=== PATIENT | male | born 1975 | race Caucasian/White ===

== ENCOUNTER 2020-04-06 10:12 | Outpatient (CLI) | payer OTHER, SELFPAY ==
--- NOTE | ~2020-04-06 | XR_ITS ---
XR lumbar spine 2-3V DATE: 04/06/2020 10:30 INDICATION: Low back pain. No recent injury. TECHNIQUE: AP, lateral, coned lateral lumbosacral views COMPARISON: None FINDINGS: No fracture or bone destruction or spondylolisthesis. The lumbar interspaces are well pres erved. The lumbar pedicles are intact. The sacroiliac joints are normal. IMPRESSION: No significant abnormality Reviewed, dictated and finalized at location B. IMPRESSION: No significant abnormality
== END 2020-04-06 10:13 | disposition home or self-care (01) ==
LOC: ANHIMG 10:21
PROVIDERS: PCP Internal Medicine; Visit Provider Internal Medicine
DX: M54.5 Low back pain (principal)
CPT/HCPCS: 72100

== ENCOUNTER 2024-03-09 12:39 | Emergency (ER) | payer OTHER, SELFPAY ==
--- NOTE | ~2024-03-09 | CT_ITS ---
EXAMINATION: CT abdomen pelvis w con DATE: 03/09/2024 14:50 INDICATION: Abdominal pain TECHNIQUE: Computed tomography (CT) of the abdomen and pelvis was performed with 100 mL Omnipaque-350 intravenous contrast. Automated exposure control and iterative reconstruction technique were employe d. The dose-length product was 233.62 mGy-cm. COMPARISON: None FINDINGS: Minimal discoid atelectasis in the anterobasilar segment of the left lower lobe. Heart size is normal . No pericardial or pleural effusion. Focal hepatic steatosis along the ligamentum teres. Gallbladder , spleen, pancreas, bilateral adrenal glands and kidneys are normal. Bowels including the appendix ar e normal. Bladder is normal. Prostatomegaly measuring 4.4 x 3.4 cm. No free intraperitoneal gas or fl uid. No pathologically enlarged abdominal or pelvic lymphadenopathy. There is decreased bilateral destinee ves appear femoral head neck offset with mild cystic change on the left which is decreasing in the se tting of cam-type femoral acetabular impingement. Mild osteoarthritis pubis with hypertrophic entheso phytes. IMPRESSION: 1. No acute intra-abdominal/pelvic process. 2. Prostatomegaly. Reviewed, dictated and finalized at location B.
[2024-03-09 12:53] VITALS: BP 137/91; PULSE 102; RESP 18; TEMP 36.5; O2SAT 97
[2024-03-09 13:38] LABS: Basophils Absolute Auto 0.1 K/mm3 (0.0-0.1); Basophils Percent Auto 0.5 % (0.2-1.2); Hematocrit 49.7 % (42.0-52.0); Hemoglobin 16.7 g/dL (14.0-18.0); Immature Granulocyte Absolute 0.03 K/mm3 (0.00-0.031); Immature Granulocyte Percent A 0.3 % (0-0.5); Lymphocytes Absolute Auto 1.47 K/mm3 (0.9-3.2); Lymphocytes Percent Auto 15.3 % (18.3-44.2); Mean Corpuscular HGB Conc 33.6 g/dl (32-36); Mean Corpuscular Hemoglobin 32.5 pg (26-34); Mean Corpuscular Volume 96.7 fl (80-100); Monocytes Absolute Auto 0.7 K/mm3 (0.1-0.6); Neutrophils Absolute Auto 7.4 K/mm3 (1.3-6.7); Neutrophils Percent Auto 76.9 % (45.5-73.1); Platelet Count Result 263 k/mm3 (150-375); Red Blood Count 5.14 M/mm3 (4.6-6.20); Red Cell Distribution Width 12.5 % (11.5-14.5); White Blood Count 9.6 K/mm3 (4.5-10.0)
[2024-03-09 14:00] LABS: Alanine Aminotransferase 29 U/L (6-50); Albumin Level 5.2 g/dL (3.5-5.1); Alkaline Phosphatase 71 U/L (38-126); Anion Gap 7 mmol/L (4-12); Aspartate Amino Transferase 29 U/L (17-59); Bilirubin,Total 0.9 mg/dL (0.2-1.3); Blood Urea Nitrogen 13 mg/dL (9-20); Calcium 10.1 mg/dL (8.4-10.2); Carbon Dioxide 32 mmol/L (22-30); Chloride 101 mmol/L (98-107); Estimated CRCL calculation 76 ml/min; Estimated Glomerular Filt Rate > 60; Glucose 114 mg/dL (65-110); Lipase 70 U/L (23-300); Potassium 4.5 mmol/L (3.4-5.0); Sodium 140 mmol/L (137-145)
[2024-03-09 14:28] LABS: Appearance Urine Clear (Clear); Bacteria Urine None Seen /hpf; Bilirubin Urine Negative (Negative); Blood Urine 1+ (Negative); Color Urine Yellow (Yellow); Glucose Urine UA Negative (Negative); Ketones Urine Trace mg/dL (Negative); Leukocyte Esterase Ur Negative LEU/UL (Negative); Need Manual Microscopic Reviewed; Nitrate Urine Negative (Negative); Non Pathogenic Casts 0-2; Protein Urine Negative (Negative); Squamous Epithelial Cell Urine None Seen /hpf (Few); Urobilinogen Urine 0.2 mg/dL (<2.0); WBC Urine 0-5 /hpf (0-3)
[2024-03-09 14:30] LABS: Add Urine Microscopic? YES; Specific Grav Ur 1.003 (1.001-1.035)
--- NOTE | 2024-03-09 14:46 | PC.NURSE ---
Pt to CT scan via stretcher at this time.
[2024-03-09] MEDS: ONDANSETRON INJ 4 MG/2 ML VIAL IV PUSH (14:55)
[2024-03-09] MEDS: SODIUM CHLORIDE 0.9% IV 1,000 ML 999 ML IV CONT (14:55)
--- NOTE | 2024-03-09 15:05 | ED.ABDPAIN ---
HPI - Abdominal Pain General Chief Complaint: Abdominal Pain Stated Complaint: vomiting, diarrhea Time Seen by Provider: 03/09/24 13:44 History of Present Illness HPI narrative: 48-year-old male present to the emergency department for evaluation for abdominal pain with associated nausea and vomiting. Patient does have a history of ulcerative colitis but does not have a GI physician. Patient states his symptoms started last night and have persisted. Patient states he has been having diarrhea as well and did notice some blood on the toilet paper after he wiped. Patient did not notice any blood in the bowl. Related Data Allergies Allergy/AdvReac Type Severity Reaction Status Date / Time No Known Allergies Allergy Verified 03/09/24 14:00 Review of Systems Review of Systems: All systems reviewed & are unremarkable except as noted in HPI and below Exam Narrative: APPEARANCE: Well appearing, no pain, no distress, well-nourished. HEAD: normocephalic, atraumatic. EYES: PERRLA/EOMI, conjunctivae clear. NOSE: Normal no drainage EARS:TMS clear with good light reflex. THROAT: Pharynx clear, no exudate. NECK: Supple. No adenopathy, no masses. RESPIRATORY: Airway patent, respirations nonlabored. Clear to auscultation bilaterally, no rales, rhonchi, wheezing. CARDIOVASCULAR: Regular rate and rhythm without murmurs rubs or gallops. ABDOMINAL: Diffuse abdominal tenderness to palpation MUSCULOSKELETAL: Moves all extremities. Strength/ROM intact, No edema, No calf tenderness. NEURO: Alert. Cranial nerves II through XII intact. Grossly intact SKIN: Warm, dry. Normal Color Course Course Emergency Course: Patient does feel improved with treatment. Vital Signs Vital signs: Vital Signs Temperature 97.7 F 03/09/24 12:53 Pulse Rate 102 H 03/09/24 12:53 Respiratory Rate 18 03/09/24 12:53 Blood Pressure 137/91 H 03/09/24 12:53 Pulse Oximetry 97 03/09/24 12:53 Oxygen Delivery Room Air 03/09/24 12:53 Temperature 97.7 F 03/09/24 12:53 Pulse Rate 80 03/09/24 16:46 Respiratory Rate 17 03/09/24 16:46 Blood Pressure 126/78 03/09/24 16:46 Pulse Oximetry 97 03/09/24 16:46 Oxygen Delivery Room Air 03/09/24 12:53 MDM - Abdominal Pain MDM Narrative Medical decision making narrative: 40-year-old male presents emergency department for evaluation for nausea vomiting and abdominal pain. Patient is afebrile with no leukocytosis and a stable hemoglobin of 16.7. Patient has no acute abnormalities on his CMP lipase is negative. Patient does have some blood on his UA but no underlying evidence of infection. CT scan showed no acute abnormality. Patient was treated with IV fluids and Zofran and did feel is nausea was improved. Patient was also treated with IV medications for pain control. On re-evaluation patient states he does feel significantly improved. Differential Diagnosis Differential diagnosis: Likely abdominal pain, acute appendicitis, calculus of kidney, constipation, diverticulitis, gastroenteritis, pancreatitis and small bowel obstruction Lab Data Attestation: I reviewed the patient's lab results. 03/09/24 13:30 03/09/24 13:30 Labs: Lab Results 03/09/24 03/09/24 Range/Units 13:30 14:04 WBC 9.6 (4.5-10.0) K/mm3 RBC 5.14 (4.6-6.20) M/mm3 Hgb 16.7 (14.0-18.0) g/dL Hct 49.7 (42.0-52.0) % MCV 96.7 (80-100) fl MCH 32.5 (26-34) pg MCHC 33.6 (32-36) g/dl RDW 12.5 (11.5-14.5) % Plt Count 263 (150-375) k/mm3 MPV 9.0 (7.4-10.4) fl Immature Gran % (Auto) 0.3 (0-0.5) % Neut % (Auto) 76.9 H (45.5-73.1) % Lymph % (Auto) 15.3 L (18.3-44.2) % Baker % (Auto) 7.0 (2.6-8.5) % Eos % (Auto) 0.0 (0-4.4) % Baso % (Auto) 0.5 (0.2-1.2) % Lymph # (Auto) 1.47 (0.9-3.2) K/mm3 Baker # (Auto) 0.7 H (0.1-0.6) K/mm3 Eos # (Auto) 0.0 (0-0.3) K/mm3 Baso # (Auto) 0.1 (0.0-0.1) K/mm3 Abs Immat Gran (auto) 0.03
[2024-03-09 15:14] VITALS: BP 122/73; PULSE 89; RESP 15; O2SAT 96
[2024-03-09] MEDS: HYDROmorphone HCL INJ (*CRX) 1 MG/ML SYR IV PUSH (15:14)
[2024-03-09 16:46] VITALS: BP 126/78; PULSE 80; RESP 17; O2SAT 97
== END 2024-03-09 16:56 | disposition home or self-care (01) ==
PROVIDERS: Emergency Provider Emergency Medicine; PCP Internal Medicine
DX: R10.9 Unspecified abdominal pain (principal); R11.2 Nausea with vomiting, unspecified
CPT/HCPCS: 36415; 74177; 80053; 81001; 83690; 85025; 96361; 96374; 96375; 99284; J1170; J2405; J7030; Q9967

== ENCOUNTER 2024-05-04 12:14 | Outpatient (CLI) | payer OTHER, SELFPAY ==
[2024-05-04 13:15] LABS: CRP < 0.5 mg/dL (<1.0)
[2024-05-04 13:21] LABS: Erythrocyte Sedimentation Rate 10 mm/hr (0-20)
[2024-05-04 13:50] LABS: Hepatitis B Core IgM Result Negative (Negative)
[2024-05-04 14:03] LABS: Hepatitis B Surface Anti Res Negative
[2024-05-06 13:58] LABS: Hepatitis B Core Ab Total NON-REACTIVE (NON-REACTIVE)
[2024-05-07 11:03] LABS: NIL 0.02 IU/mL; Quantiferon TB Plus, 1T NEGATIVE (NEGATIVE); TB1-NIL 0.01 IU/mL; TB2-NIL 0.01 IU/mL
== END 2024-05-04 12:15 | disposition home or self-care (01) ==
LOC: ANHLAB 12:16
PROVIDERS: PCP Internal Medicine; Visit Provider Nurse Practitioner Family
DX: K51.90 Ulcerative colitis, unspecified, without complications (principal)
CPT/HCPCS: 36415; 85652; 86140; 86480; 86704; 86705; 86706

== ENCOUNTER 2024-05-05 10:57 | Outpatient (CLI) | payer OTHER, SELFPAY ==
[2024-05-15 21:49] LABS: Calprotectin, Stool 75 mcg/g
== END 2024-05-05 10:58 | disposition home or self-care (01) ==
LOC: ANHLAB 10:59
PROVIDERS: PCP Internal Medicine; Visit Provider Nurse Practitioner Family
DX: K51.90 Ulcerative colitis, unspecified, without complications (principal)
CPT/HCPCS: 83993

== ENCOUNTER 2024-08-17 07:16 | Outpatient (CLI) | payer OTHER, SELFPAY ==
--- NOTE | ~2024-08-17 | NM_ITS ---
EXAM: NM gastric emptying study DATE: 08/17/2024 12:13 INDICATION: Nausea with vomiting, unspecified. TECHNIQUE: A gastric emptying study was performed using the methodology of Linnea MARTIN, et al. J Nucl Med 2007; 48:568-572. The patient was given a meal consisting of 2 scrambled eggs labeled with 1.1 m Ci Tc-99m sulfur colloid, 2 slices of toast, two packages of jam, and approximately 120 mL of water. Simultaneous anterior and posterior 1-min images of the abdomen were obtained with the patient supine at multiple time points over a total period of 4 hours. The geometric mean of anterior and posterior views was determined, and the percentage retention was calculated for each time point. COMPARISON: CT abdomen and pelvis 03/09/2024 FINDINGS: Gastric retention of the radiotracer-labeled meal was 64%, 27%, and 4% at the 1-hour, 2-ho ur, and 4-hour time points, respectively. With this technique, apparent rapid gastric emptying is sug gested by <30% gastric retention at 1 hour. Delayed gastric emptying is defined by gastric retention of >90% at 1 hour, >60% retention at 2 hours, or >10% retention at 4 hours. IMPRESSION: 1. Normal gastric emptying. Reviewed, dictated and finalized at location A. [facility] [employer] IMPRESSION: 1. Normal gastric emptying.
== END 2024-08-17 07:17 | disposition home or self-care (01) ==
PROVIDERS: PCP Internal Medicine; Visit Provider Nurse Practitioner Family
DX: R11.2 Nausea with vomiting, unspecified (principal)
CPT/HCPCS: 78264; A9541

== ENCOUNTER 2024-10-07 00:51 | Day surgery (SDC) | payer OTHER, SELFPAY ==
[2024-09-29 15:17] VITALS: BMI 21.2
--- NOTE | 2024-10-06 15:44 | P.PNAN_ITS ---
Anes - Initial Pre Proc Eval Procedure: Operation Date: 10/07/24 14:30 Proposed Procedures p Esophagogastroduodenoscopy - Daron Jacome MD Date/Time: 10/06/24 15:44 Surgeon: Daron Jacome MD Pre Op Diagnosis: nausea w/ vomiting Patient Data Age: 49 Gender: M Height: 1.85 m Weight: 73 kg Allergies Allergy/AdvReac Type Severity Reaction Status Date / Time No Known Allergies Allergy Verified 09/29/24 15:14 Home Medications ?Medication ?Instructions ?Recorded ?Confirmed ?Type ondansetron 4 mg disintegrating 4 mg PO Q8H PRN nausea and 03/09/24 09/29/24 Rx tablet vomiting #20 tabs omeprazole 40 mg capsule,delayed 40 mg PO DAILY 1 month #30 caps 07/08/24 09/29/24 Rx release venlafaxine 75 mg capsule,extended 75 mg PO DAILY 07/08/24 09/29/24 History release 24 hr mesalamine 1.2 gram tablet,delayed 2.4 g PO DAILY 09/29/24 09/29/24 History release Patient hx anesthesia problems: none Family hx anesthesia problems: none Results Review: All pre-operative results and documents have been reviewed as part of the pre- operative evaluation. [facility] Past Medical History Medical History (Updated 07/08/24 @ 15:12 by FIDE TurnerC) Gastritis and duodenitis Rectal nodule Anxiety Erectile dysfunction Tobacco use Venous stasis Varicose veins of both legs with edema Kidney stone Depression Ulcerative colitis Social History Social History Smoking packs per day: 1 Smoking cigarettes per day: 20.0 Years smoked: 5 Smoking pack-years: 5.00 Smoking status: Current every day smoker Tobacco type: cigarettes Alcohol intake: never Substance use: current Substance use type: marijuana Other substance usage details: Marijuana daily Living arrangements: with family Spiritual care concerns: No Anes - Eval Final PreProcedure Day of Procedure 10/06/24 15:44 Patient weight: normal Heart: regular rate and rhythm Lungs: clear to auscultation and normal air movement Airway: Mallampati scale class II Neurological: alert and oriented Last oral intake: >/= 8 hours ASA classification: III Emergent: no Anesthetic plan: proceed Anesthesia type and monitoring: general GIVS and standard monitoring Results Review: All pre-operative results and documents have been reviewed as part of the pre- operative evaluation. Informed Consent: The patient's anesthetic plan and its attendant risks and benefits were discussed with the patient/family/POA. Questions were solicited and answers provided to the satisfaction of the patient/family/POA.
[2024-10-07 13:04] VITALS: BP 108/65; PULSE 76; RESP 18; TEMP 36.4; O2SAT 96; BMI 20.4
--- NOTE | 2024-10-07 13:05 | PM.HPGS ---
History of Present Illness History of Present Illness Consent: Risks, benefits, and alternatives have been discussed and questions answered. Patient agrees to proceed with procedure. Chief complaint: nausea w/ vomiting Narrative: Mejia Duarte is a 49 year old male here for EGD, h/o GERD and nausea, using ppi, also ulcerative proctitis on mesalamine Review of Systems Review of Systems: All systems reviewed & are unremarkable except as noted in HPI and below PMFSH Past Medical History Medical History (Updated 10/07/24 @ 13:10 by Daron Jacome MD) GERD (gastroesophageal reflux disease) Nausea Gastritis and duodenitis Rectal nodule Anxiety Erectile dysfunction Tobacco use Venous stasis Varicose veins of both legs with edema Kidney stone Depression Ulcerative colitis Social History Social History Smoking packs per day: 1 Smoking cigarettes per day: 20.0 Years smoked: 5 Smoking pack-years: 5.00 Smoking status: Current every day smoker Tobacco type: cigarettes Alcohol intake: never Substance use: current Substance use type: marijuana Other substance usage details: Marijuana daily Living arrangements: with family Spiritual care concerns: No Meds Home Medications and Allergies Home Medications ?Medication ?Instructions ?Recorded ?Confirmed ?Type ondansetron 4 mg disintegrating 4 mg PO Q8H PRN nausea and 03/09/24 09/29/24 Rx tablet vomiting #20 tabs omeprazole 40 mg capsule,delayed 40 mg PO DAILY 1 month #30 caps 07/08/24 10/07/24 Rx release venlafaxine 75 mg capsule,extended 75 mg PO DAILY 07/08/24 10/07/24 History release 24 hr mesalamine 1.2 gram tablet,delayed 2.4 g PO DAILY 09/29/24 10/07/24 History release Allergies Allergy/AdvReac Type Severity Reaction Status Date / Time No Known Allergies Allergy Verified 10/07/24 13:02 Exam Const: General: comfortable and no acute distress HENMT: Face/Nose/Sinus: Normal nares present Eyes: General: appearance normal, both eyes and all related structures Neck: Neck: no JVD Resp: Auscultation: clear to auscultation bilaterally Cardio: Rate: regular rate Rhythm: regular rhythm GI: Inspection: non-distended GI Palp: Yes Soft to palpation Skin: General skin exam: normal color Neuro: General: gait normal Speech: normal speech Extrem: General: normal to inspection Psych: Mental Status: mental status grossly normal Assessment and Plan Assessment and plan (1) Nausea: Code(s): R11.0 - Nausea Status: Acute Assessment and Plan: egd with bx (2) GERD (gastroesophageal reflux disease): Code(s): K21.9 - Gastro-esophageal reflux disease without esophagitis Status: Acute
[2024-10-07] MEDS: LACTATED RINGERS 1,000 ML 150 ML IV CONT (13:08)
[2024-10-07 13:20] VITALS: BP 79/46; PULSE 77; RESP 21; O2SAT 99
[2024-10-07 13:30] VITALS: BP 83/50; PULSE 65; RESP 19; O2SAT 100
[2024-10-07 13:40] VITALS: BP 97/61; PULSE 73; RESP 24; O2SAT 97
--- OUTSIDE RECORDS SUMMARY | 2024-10-08 03:44 | XMS_ITS | Data Portability ---
Author Organization [facility] [employer], Main Office Address [address] [place] [address] Assessment Encounter Date Assessment Date Assessment LastModified by Organization Details LastModified Time 02/25/2023 02/25/2023 Varicose veins of BLEs. Hx of ablation of L GSV approx. 3-5 years ago. Patient has tried compression stockings without relief. He has significant cramping and soreness of BLEs, interferes with work. Will order venous duplex BLEs and f/u after results are obtained. [email or web address] Not available 02/25/2023 13:17:10 Plan of Treatment Reminders Order Date Submit Date Provider Last Modified By Organization Details Last Modified Time Details Appointments None recorded. Lab CBC w/ auto diff [address] [facility] n37 [facility] (Lab), [address] [place], [address], 3 08:36:38 CBC w/ auto diff 2022 023 [email or web address] [facility], [address], [place], [address], 3 08:39:57 CMP, serum or plasma 2022 023 [email or web address] [facility], 2022 [address], [place], [address], 3 08:39:57 CBC w/ auto diff 2022 023 STAN [facility], 20[address], [place], [address], 3 19:15:51 Referral vascular surgeon referral 2022 023 [email or web address] [facility], [address], [place], [address], 3 08:09:45 Procedures None recorded. Surgeries None recorded. Imaging US, duplex, venous, lower extremity 2022 023 [facility], [address] [facility], [place], [address], 3 09:05:12 Medication Orders venlafaxine ER 37.5 mg capsule,ext ended release 24 hr [email or web address]/Pharmacy #[id number], [address], [place], [address], 4 16:24:44 venlafaxine ER 75 mg capsule,ext ended release 24 hr 2022 [email or web address]/Pharmacy #[id number], [address], [place], [address], 3 17:38:05 buspirone 10 mg tablet 2022 [email or web address]/Pharmacy #[id number], [address], [place], [address], 3 17:37:25 ondansetron 4 mg disintegrat ing tablet 2023 024 [facility]/Pharmacy #[id number], [address], [place], [address], 4 16:59:47 mirtazapine 15 mg tablet [email or web address]/Pharmacy #[id number], [address], [place], [address], 4 07:52:05 Patient TargetsNo targets recorded. Patient InstructionsNo instructions recorded. Reason for Referral Vascular Surgeon Referral fo r Varicose veins of lower extremity Referring Physician: Eitan Ramirez, Internal Medicine, Encounter Date: 07/24/2023 Results Created Date Observation Date Name Description Value Unit Range Abnormal Flag Note LastModifiedBy Organization Detail LastModifiedTime 07/24/2007/24/2023 CBC/C OMPLE TE BLD COUNT W/DIF F white blood cells 5.8 x10'3 /uL 4.2-10 .8 Not Available [facility] (Lab) [address] [place], [address], 07/24/2023 19:15:51 07/24/2007/24/2023 CBC/C OMPLE TE BLD COUNT W/DIF F red blood cells 4.62 x10'6 /uL 4.10-5 .80 Not Available [facility] (Lab) [address] [place], [address], 07/24/2023 19:15:51 07/24/20 23 07/24/2023 CBC/C OMPLE TE BLD COUNT W/DIF F hemoglobin 15.3 g/dL 13.2-1 7.0 Not Available [facility] (Lab) [address] [place], [address], 07/24/2023 19:15:51 07/24/2007/24/2023 CBC/C OMPLE TE BLD COUNT W/DIF F hematocrit 46.7 % 39.3-5 0.0 Not Available [facility] (Lab) [address] [place], [address], 07/24/2023 19:15:51 07/24/2007/24/2023 CBC/C OMPLE TE BLD COUNT W/DIF F mean red cell volume 101.1 fL 80.0-9 7.0 high Not Available [facility] (Lab) [address] [place], [address], 07/24/2023 19:15:51 07/24/20 23 07/24/2023 CBC/C OMPLE TE BLD COUNT W/DIF F mean red cell hemoglobin 33.1 pg 27.0-3 3.0 high Not Available [facility] (Lab) [address] [place], [address], 07/24/2023 19:15:51 07/24/20 23 07/24/2023 CBC/C OMPLE TE BLD COUNT W/DIF F mean RBC HGB concentratio n 32.8 g/dL 31.0-3 6.0 Not Available [facility] (Lab) [address] [place], [address], 07/24/2023 19:15:51 07/24/2007/24/2023 CBC/C OMPLE TE BLD COUNT W/DIF F red cell distribution width 12.1 % 11.8-1 5.5 Not Available [facility] (Lab) [address] [place], [address], 07/24/2023 19:15:51 07/24/20 23 07/24/2023 CBC/C OMPLE TE BLD COUNT W/DIF F platelets 256 x10'3 /uL 150-40 0 Not Available [facility] (Lab) [address] [place], [address], 07/24/2023 19:15:51 07/24/2007/24/2023 CBC/C OMPLE TE BLD COUNT W/DIF F mean platelet volume 10.5 fL 9.0-12 .4 Not Available [facility] (Lab) [address] [facility] [place], [address], 07/24/2023 19:15:51 07/24/20 23 07/24/2023 CBC/C OMPLE TE BLD COUNT W/DIF F neutrophils 62.4 % 39.0-7 2.0 Not Available [facility] (Lab) [address] [place], [address], 07/24/2023 19:15:51 07/24/20 23 07/24/2023 CBC/C OMPLE TE BLD COUNT W/DIF F lymphocytes 28.6 % 16.0-4 7.0 Not Available [facility] (Lab) [address] [place], [address], 07/24/2023 19:15:51 07/24/20 23 07/24/2023 CBC/C OMPLE TE BLD COUNT W/DIF F monocytes 7.2 % 5.0-12 .0 Not Available [facility] (Lab) [address] [place], [address], 07/24/2023 19:15:51 07/24/20 23 07/24/2023 CBC/C OMPLE TE BLD COUNT W/DIF F eosinophils 1.2 % 1.0-7. 0 Not Available [facility] (Lab) [address] [place], [address], 07/24/2023 19:15:51 07/24/20 23 07/24/2023 CBC/C OMPLE TE BLD COUNT W/DIF F basophils 0.3 % 0.0-2. 0 Not Available [facility] (Lab) [address] [place], [address], 07/24/2023 19:15:51 07/24/20 23 07/24/2023 CBC/C OMPLE TE BLD COUNT W/DIF F immature granulocytes 0.3 % 0.00-0 .50 Not Available [facility] (Lab) [address] [place], [address], 07/24/2023 19:15:51 07/24/20 23 07/24/2023 CBC/C OMPLE TE BLD COUNT W/DIF F neutrophils, absolute count 3.61 x10'3 /uL 1.5-8. 0 Not Available [facility] (Lab) [address] [place], [address], 07/24/2023 19:15:51 07/24/20 23 07/24/2023 CBC/C OMPLE TE BLD COUNT W/DIF F lymphocytes, absolute count 1.66 x10'3 /uL 1.07-3 .43 Not Available [facility] (Lab) [address] [place], [address], 07/24/2023 19:15:51 07/24/20 23 07/24/2023 CBC/C OMPLE TE BLD COUNT W/DIF F monocytes, absolute count 0.42 x10'3 /uL 0.29-0 .99 Not Available [facility] (Lab) [address] [place], [address], 07/24/2023 19:15:51 07/24/20 23 07/24/2023 CBC/C OMPLE TE BLD COUNT W/DIF F eosinophils, absolute count 0.07 x10'3 /uL 0.02-0 .53 Not Available [facility] (Lab) [address] [place], [address], 07/24/2023 19:15:51 07/24/2007/24/2023 CBC/C OMPLE TE BLD COUNT W/DIF F basophils, absolute count 0.02 x10'3 /uL 0.01-0 .08 Not Available [facility] (Lab) [address] [place], [address], 07/24/2023 19:15:51 07/24/20 23 07/24/2023 CBC/C OMPLE TE BLD COUNT W/DIF F immature granulocytes ,absolute 0.02 x10'3 /uL 0.00-0 .05 Not Available [facility] (Lab) [address] [place], [address], 07/24/2023 19:15:51 07/24/20 23 07/24/2023 CBC/C OMPLE TE BLD COUNT W/DIF F nucleated red blood cells 0.0 % -0 Not Available [facility] (Lab) [address], [place], [address], 07/24/2023 19:15:51 07/24/20 23 07/24/2023 CBC/C OMPLE TE BLD COUNT W/DIF F NRBC# 0.00 x10'3 /uL Not Available [facility] (Lab) [address], [place], [address], 07/24/2023 19:15:51 02/28/20 23 US, duple x, venou s, lower extre mity No observ ation record ed. [email or web address] Not Available 2022 10:38:30 Result Notes None recorded. Problems Name Problem SNOMED Code Status Onset Date Resolution Date Notes Provider Name and Address Organization Details Recorded Time Rectal hemorrhage 31935807 Completed Not Available [facility] 3 01:08:23 Venous varices 266230859 Completed Not Available [facility] 3 01:08:23 Venous varices 988043745 Active Not Available [facility] 3 13:42:16 Liver function tests outside reference range 818915511 Active 2021 Not Available [facility] 3 13:42:16 Liver function tests outside reference range 829779054 Completed 201803/12/2022 Not Available [facility] 3 01:08:24 Serum creatinine above reference range 630094748 Active 2019 Not Available [facility] 3 13:42:16 Scapulalgi a 84281867 Completed Not Available [facility] 3 01:08:24 Abdominal pain 72261111 Completed Not Available [facility] 3 01:08:24 Low back pain 924170235 Active Not Available [facility] 3 13:42:17 Depressive disorder 22163656 Active 2021 Not Available [facility] 3 13:42:17 Anxiety 56439835 Active Not Available [facility] 3 13:42:17 Ulcerative colitis 75005169 Active Not Available [facility] 3 13:42:17 Otitis media 96135167 Completed Not Available [facility] 3 01:08:25 Venous stasis 31372884 Active Not Available [facility] 3 13:42:17 Smoker 16979055 Active Not Available [facility] 3 13:42:17 Kidney stone 35439336 Active 2019 Not Available [facility] 3 13:42:17 Leukocytos is 458795745 Active 2022 Not Available [facility] 3 13:42:16 Fatigue 02782263 Active 2022 Not Available [facility] 3 13:42:17 Cachexia 454869318 Active 2022 Not Available [facility] 3 13:42:16 Varicose veins of lower extremity 10026940 Active 2022 Not Available [facility] 3 13:42:17 Pain due to varicose veins of lower extremity 923730726 Active 2022 Not Available [facility] 3 13:42:17 Erectile dysfunctio n 261310506 Active 2022 Eitan Ramirez MD [address] [facility], [address], [address] , [employer] 3 10:09:46 Varicose veins of lower extremity 76456292 Active 2022 Eitan Ramirez MD [address] [facility], [address] [address], [place], [address] , [email or web address] 3 10:13:35 Nausea 378535384 Active 2023 ANDER Lundberg, [employer] [facility] [employer] [facility] 4 17:11:50 Problem Notes None recorded. Procedures Surgical History Date Name Laterality Status Provider Name and Address Organization Details Recorded Time 11/30/19 20 cystoscopy completed Not Available [facility] 3 00:55:45 11/11/19 20 cystoscopy completed Not Available [facility] 00:55:45 pneumothorax relief completed Not Available [facility] 11/13/2022 00:55:45 Hernia Repair completed Not Available [facility] 11/13/2022 00:55:45 Imaging Results Imaging Date Name Status LastModified by Organiz ation Details LastModified Time 02/27/2023 US, duplex, venous, lower extremity completed [email or web address] Information not available 03/03/2023 10:38:30 Procedure Notes None recorded. Medical Equipment None Reported. Allergies No known drug allergies Medications Name Sig Start Date Stop Date Status Note LastModified by Organization Details LastModified Time cyclobenz aprine 10 mg tablet Take 1 tablet 3 times a day by oral route as needed. active GENERIC FOR FLEXERIL Not Available Not Available Not Available amoxicill in 500 mg capsule Take 1 capsule 3 times a day by oral route for 7 days. active Not Available Not Available No t Available mesalamin e 4 gram/60 mL enema INSERT 1 ENEMA RECTALLY AND ADMINIST ER CONTENTS TWICE A DAY DIRECTED FOR 30 DAYS 2023 active Not Available Not Available Not Avai lable Proctosol HC 2.5 % rectal cream with applicato r 04/27 completed Not Available Not Available Not Available bupropion HCl SR 150 mg tablet,12 hr sustained -release TAKE 1 TABLET BY MOUTH TWICE DAILY*PL EASE MAKE AN OFFICE VISIT FOR MORE REFILLS* 11/13 completed Not Available Not Available Not Available venlafaxi ne ER 37.5 mg capsule,e xtended release 24 hr TAKE 1 CAPSULE BY MOUTH EVERY DAY 02/09 completed Not Available Not Available Not Available prednison e 10 mg tablet active Not Available Not Available Not Available venlafaxi ne ER 75 mg capsule,e xtended release 24 hr TAKE 1 CAPSULE BY MOUTH EVERY DAY active Not Available Not Available No t Available clindamyc in HCl 300 mg capsule 01/21 completed Not Available Not Available Not Available citalopra m 40 mg tablet TAKE ONE TABLET BY MOUTH ONCE DAILY 06/19 completed Not Available Not Available Not Available azithromy gely 250 mg tablet TAKE 2 TABLETS (500 MG) BY ORAL ROUTE ONCE DAILY FOR 1 DAY THEN 1 TABLET (250 MG) BY ORAL ROUTE ONCE DAILY FOR 4 DAYS 01/21 completed Not Available Not Available Not Available ibuprofen 800 mg tablet 04/27 completed Not Available Not Available Not Available hydrocodo ne 5 mg-acetam inophen 325 mg tablet 10/18 completed Not Available Not Available Not Available phenazopy ridine 200 mg tablet Take 1 tablet 3 times a day by oral route as needed. 04/05 completed Not Available Not Available Not Available Medrol (Yovani) 4 mg tablets in a dose pack as directed active Not Available Not Available No t Available venlafaxi ne ER 150 mg capsule,e xtended release 24 hr TAKE 1 CAPSULE BY MOUTH EVERY DAY 10/30 completed Not Available Not Available Not Available metronida zole 500 mg tablet TAKE 1 TABLET BY MOUTH IMMEDIAT TRUMAN, THEN TAKE 1 TABLET TWICE A DAY UNTIL GONE. 06/12 completed Not Available Not Available Not Available omeprazol e 40 mg capsule,d elayed release Take 1 capsule every day by oral route. 11/29 completed Not Available Not Available Not Available bupropion HCl SR 100 mg tablet,12 hr sustained -release Take 1 tablet twice a day by oral route. 06/27 completed Not Available Not Available Not Available amoxicill in 500 mg tablet Take 1 tablet every 8 hours by oral route. 04/29 completed Not Available Not Available Not Available Zofran 4 mg tablet Take 1 tablet every 6 hours by oral route as needed. 11/29 completed Not Available Not Available Not Available oxycodone -acetamin ophen 5 mg-325 mg tablet active Not Available Not Available Not Available hydrocort isone 2.5 % topical cream with perineal applicato r APPLY A THIN LAYER TO THE AFFECTED AREA(S) BY TOPICAL ROUTE 2-4 TIMESDAI LY 04/27 completed Not Available Not Available Not Available lorazepam 0.5 mg tablet TAKE 1 TABLET TWICE A DAY BY ORAL ROUTE NEEDED. active Not Available Not Available No t Available oxycodone -acetamin ophen 10 mg-325 mg tablet 04/05 completed Not Available Not Available Not Available tamsulosi n 0.4 mg capsule Take 1 capsule every day by oral route for 7 days. 04/05 completed Not Available Not Available Not Available hydrocodo ne 7.5 mg-acetam inophen 325 mg tablet Take 1 tablet every 6 hours by oral route as needed. 04/05 completed Not Available Not Available Not Available pantopraz ole 40 mg tablet,de layed release TAKE 1 TABLET BY MOUTH EVERY MORNING BEFORE BREAKFAS T FOR ACID REFLUX 03/13 completed Not Available Not Available Not Available buspirone 10 mg tablet TAKE 1 TABLET BY MOUTH TWICE A DAY active Not Available Not Available No t Available mirtazapi ne 15 mg tablet TAKE 1 TABLET BY MOUTH EVERYDAY AT BEDTIME active Not Available Not Available No t Available ibuprofen 600 mg tablet 10/18 completed Not Available Not Available Not Available levofloxa gely 500 mg tablet Take 1 tablet every 24 hours by oral route. 04/05 completed Not Available Not Available Not Available oxycodone -acetamin ophen 7.5 mg-325 mg tablet 07/25 completed Not Available Not Available Not Available Naprosyn 500 mg tablet Take 1 tablet twice a day by oral route with meals. 07/25 completed Not Available Not Available Not Available ondansetr on 4 mg disintegr ating tablet TAKE 1 TABLET BY MOUTH EVERY 8 HOURS NEEDED FOR NAUSEA AND VOMITING active Not Available Not Available No t Available cyclobenz aprine 5 mg tablet active Not Available Not Available No t Available Canasa 1,000 mg rectal supposito ry 10/18 completed Not Available Not Available Not Available mesalamin e 1.2 gram tablet,de layed release TAKE 2 TABLET BY MOUTH EVERY DAY active Not Available Not Available No t Available Suprep Bowel Prep Kit 17.5 gram-3.13 gram-1.6 gram oral solution 11/08 completed Not Available Not Available Not Available Chantix Continuin g Month Box 1 mg tablet Take 1 tablet twice a day by oral route for 30 days. active Not Available Not Available No t Available Chantix Starting Month Box 0.5 mg (11)-1 mg (42) tablets in dose pack Take 1 tablet twice a day by oral route. active take as directed Not Available Not Available Not Available Vitals Date Recorded Body height Body mass index (BMI) Body weight Body temperature Heart rate Oxygen saturation Oxygen saturation in Arterial blood by Pulse oximetry Systolic blood pressure Diastolic blood pressure Provider Name and Address Organization Details Last Updated DateTime 3 185.42 cm 20.3 kg/m2 97176.2 2 g 97.4 [degF] 69 /min 97 % 97 % 108 mm[Hg] 60 mm[Hg] Madison Nicholas CMA [facility] [employer] [facility] 3 14:30:27 Date Recorded Body height Body weight Body temperature Heart rate Oxygen saturation Oxygen saturation in Arterial blood by Pulse oximetry Systolic blood pressure Diastolic blood pressure Provider Name and Address Organization Details Last Updated DateTime 3 185.42 cm 20186.2 2 g 97.6 [degF] 70 /min 98 % 98 % 110 mm[Hg] 62 mm[Hg] Mark Santos [facility] [employer] [facility] 3 12:45:07 Date Recorded Body height Body mass index (BMI) Body weight Body temperature Heart rate Oxygen saturation Oxygen saturation in Arterial blood by Pulse oximetry Systolic blood pressure Diastolic blood pressure Provider Name and Address Organization Details Last Updated DateTime 3 185.42 cm 20.6 kg/m2 61497.4 1 g 97.1 [degF] 74 /min 97 % 97 % 118 mm[Hg] 70 mm[Hg] Sole ochoa [facility] [employer] [facility] 3 14:54:53 Date Recorded Body weight Body mass index (BMI) Body height Body temperature Heart rate Oxygen saturation Oxygen saturation in Arterial blood by Pulse oximetry Systolic blood pressure Diastolic blood pressure Provider Name and Address Organization Details Last Updated DateTime 3 38240.7 4 g 21.8 kg/m2 185.42 cm 96.9 [degF] 73 /min 98 % 98 % 128 mm[Hg] 80 mm[Hg] Sole ochoa [facility] [employer] [facility] 3 09:57:00 Date Recorded Body height Body mass index (BMI) Body weight Body temperature Heart rate Respiratory rate Oxygen saturation Oxygen saturation in Arterial blood by Pulse oximetry Systolic blood pressure Diastolic blood pressure Provider Name and Address Organization Details Last Updated DateTime 4 185.42 cm 19.7 kg/m2 41666.2 6 g 97.9 [degF] 76 /min 16 /min 97 % 97 % 116 mm[Hg] 68 mm[Hg] Sharmin Medrano MA [facility] [employer] [facility] 4 16:10:01 Social History Question Answer Notes LastModified by Organizat ion Details LastModified Time Tobacco Smoking Status Former Smoker Not Available [facility] 11/13/2022 00:51:36 Do You Have An Advance Directive? No [id number] Information not available 11/13/2022 What Is Your Level Of Alcohol Consumption? None [id number] Information not available 11/13/2022 What Is Your Level Of Caffeine Consumption? Occasional [id number] Information not available 11/13/2022 What Is Your Code Status? Full Code [id number] Information not available 11/13/2022 In The 14 Days Before Symptom Onset, Have You Had Close Contact With A Laboratory-confi rmed COVID-19 While That Case Was Ill? No [id number] Information not available 11/13/2022 In The 14 Days Before Symptom Onset, Have You Had Close Contact With A Person Who Is Under Investigation For COVID-19 While That Person Was Ill? No [id number] Information not available 11/13/2022 What Type Of Diet Are You Following? SPECIFIC Low Residue Low Fiber Diet [id number] Information not available 11/13/2022 Do You Or Have You Ever Used E-cigarettes Or Vape? 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 No [id number].43662 [id number] Information not available 11/13/2022 Do You Have A Medical Power Of Cellar Pumper? No [id number].19840 [id number] Information not available 11/13/2022 What Was The Date Of Your Most Recent Tobacco Screening? 08/14/2022 [id number] Information not available 11/13/2022 What Is Your Relationship Status? [id number].[id number] Information not available 11/13/2022 Do You Use Your Seat Belt Or Car Seat Routinely? Yes [id number].53589 [id number] Information not available 11/13/2022 Are You Passively Exposed To Smoke? No MIGRATION.08681 [id number] Information not available 11/13/2022 Do You Feel Stressed (tense, Restless, Nervous, Or Anxious, Or Unable To Sleep At Night)? [id number] MIGRATION.58285 [id number] Information not available 11/13/2022 Do You Use Any Illicit Or Recreational Drugs? Yes Marijuana [id number].[id number] Information not available 11/13/2022 Have You Recently Traveled Abroad? No MIGRATION.[id number] 09905 Information not available 11/13/2022 Have You Used IV Drugs? No MIGRATION.55228 [id number] Information not available 11/13/2022 Do You Have Any Dietary Restrictions? Yes [id number].25063 [id number] Information not available 11/13/2022 Sex: Male Functional Status Question Answer Note LastModified by Organizat ion Details LastModified Time What is your exercise level? None [id number] Information not available 11/13/2022 Mental Status None recorded. Family History Nothing Reported. Medical History Condition Response KIDNEY STONES Y OTHER # 1 Y Other # 2 Y DEPRESSION (INCLUDING POST ) Y BACK / NECK PROBLEMS Y Immunizations Vaccine Type Date Status Note Provider Nam e and Address Organization Details Recorded Time Influenza, split virus, quadrivalent, PF 07/24/2023 completed ANDER Powers, [place] [email or web address] [facility] 07/24/2023 17:01:56 COVID-19, mRNA, LNP-S, PF, 30 mcg/0.3 mL dose 03/12/2021 completed Not Available [facility] 3 13:42:17 COVID-19, mRNA, LNP-S, PF, 30 mcg/0.3 mL dose 02/19/2021 completed Not Available [facility] 3 13:42:17 Influenza, split virus, quadrivalent, PF 07/30/2022 completed Not Available [facility] 3 13:42:17 Tdap 03/13/2022 completed Not Available [facility] 03/21/2023 13:42:17 Past Encounters Encounter ID Performer Location Encounter Start Date Encounter Closed Date Diagnosis/Indication Diagnosis SNOMED-CT Code Diagnosis ICD10 Code Diagnosis Note [id number] [facility] [place] [place] Internal Med [address] [facility] [place] [address] 11/13/2020 00:00:00 11/13/2020 16:09:35 [id number] _STAN_Yakov IGRATION_ DEFAULT_1 _1 , 06/27/2021 00:00:00 06/27/2021 17:33:53 [id number] [facility] [place] [place] Internal Med [id number] [facility] [place] [address] 08/21/2021 00:00:00 08/21/2021 17:10:42 [id number] [facility] Internal Med [id number] [facility] [place] [address] 03/13/2022 00:00:00 03/13/2022 13:27:32 [id number] S_[facility] [place] [place] Internal Med [address] [place] [address] 07/30/2022 00:00:00 07/30/2022 15:49:08 [id number] _ATHENA_M IGRATION_ DEFAULT_1 _1 , 08/14/2022 00:00:00 08/14/2022 14:34:49 [id number] Eitan Ramirez MD [facility] [place] [place] Internal Med [address] [place] [address] 11/25/2022 14:36:59 11/25/2022 15:39:28 Ulcerative colitis 70841875 K51.90 no meds, under control Anxiety 78254349 F41.9 better Depressive disorder 3548 9007 F32.A better Liver func tion tests outside reference range 987063471 R94.5 improved Adult heal th examination 193771920 Z00.00 COVID- 02/19/2021 , 03/12/2021 FLU- ol onoscopy 09/04 Dr Kerns Leukocytosis 769455426 D 72.829 could be due to ulcerative colitis, will recheck in 4 months [id number] Michelle Kerns MD [facility] [address] [place] [address] 01/22/2023 13:46:36 01/26/2023 23:30:28 Ulcerative colitis 19403848 K51.90 PT REQUESTS A DIETIAN CONSULT Cachexia 696779819 R64 [id number] Eitan Ramirez MD [facility] [place] [place] Internal Med [address] [address] 02/19/2023 14:22:25 02/19/2023 14:52:24 Anxiety 32332307 F41.9 lower the dose Ulcerative colitis 62357 004 K51.90 better with meds Depressive disorder 3548 9007 F32.A better Liver func tion tests outside reference range 554288744 R94.5 improved Leukocytosis 522816193 D 72.829 could be due to ulcerative colitis, will recheck Adult heal th examination 316251739 Z00.00 COVID- 02/19/2021 , 03/12/2021 FLU- 2col onoscopy 09/04 Dr Kerns [id number] Nixon ansari MD [facility] [address] [place] [address] 02/25/2023 12:31:10 02/28/2023 09:05:12 Varicose veins of lower extremity 15476677 I83.899 Pain due t o varicose veins of lower extremity 429685598 I83.813 Bilat legs [id number] Eitan Ramirez MD [facility] [place] [place] Internal Med [address] [facility] [place] [address] 06/12/2023 14:44:56 06/12/2023 15:32:49 Anxiety 08841338 F41.9 start Buspar Ulcerative colitis 36830 004 K51.90 better with meds Depressive disorder 3548 9007 F32.A ^ the dose Liver func tion tests outside reference range 923199869 R94.5 improved Leukocytosis 144409978 D 72.829 could be due to ulcerative colitis, will recheck Adult [facility] examination 328350419 Z00.00 COVID- 02/19/2021 , 03/12/2021 FLU- 2Col onoscopy 09/04 Dr Kerns [id number] Eitan Ramirez MD [facility] [place] [place] Internal Med [address] [place] [address] 07/24/2023 09:47:43 07/24/2023 10:29:18 Anxiety 10241152 F41.9 better Ulcerative colitis 77134 004 K51.90 better with meds Depressive disorder 3548 9007 F32.A better Liver func tion tests outside reference range 508534689 R94.5 improved Leukocytosis 579165603 D 72.829 could be due to ulcerative colitis, will recheck Adult heal th examination 042468212 Z00.00 COVID- 02/19/2021 , 03/12/2021 FLU- 07/24/23Co lonoscopy 09/04 Dr Kerns Administra tion of influenza vaccine 22904958 Z23 Erectile dysfunction 860 960995 F52.21 no meds Varicose v eins of lower extremity 49556678 I83.90 [id number] Eitan Ramirez MD [facility] Internal Med [address] [place] [place] [address] 02/10/2024 15:54:44 02/10/2024 17:03:50 Anxiety 36892285 F41.9 add Mirtazapin e Ulcerative colitis 67885 004 K51.90 on meds, need f/u with GI Depressive disorder 3548 9007 F32.A NOT UNDER control Liver func tion tests outside reference range 584112055 R94.5 improved Leukocytosis 019578498 D 72.829 improved Adult heal th examination 542614336 Z00.00 COVID- 02/19/2021 , 03/12/2021 FLU- 07/24/23Co lonoscopy 09/04 Dr Kerns Erectile dysfunction 860 749335 F52.21 better Varicose v eins of lower extremity 21905214 I83.90 Nausea 111290379 R11.0 meds help Health Concerns Section Related Observation LastModified by Organization Detai ls LastModified Time None Recorded Concern Status LastModified by Organization Details LastModified Time None Recorded Advance Directives Directive N: Payers Encounter Date Sequence Insurance Name Policy Number Policy Chu Covered Member ID Chu Member ID Guarantor Name 02/19/2023 1 [facility] (O) [id number] [facility] [id number] 2 [facility] 02/25/2023 1 [facility] (O) [id number] [facility] [id number] 2 [facility] 06/12/2023 1 [facility] [email or web address] (O) [id number] [facility] [id number] 2 [facility] 07/24/2023 1 [facility] [email or web address] (PPO) [id number] [facility] [id number] 2 Mejia Tipton 02/10/2024 1 [facility] (PPO) [id number] [facility] [id number] 2 Mejia Duarte Notes Date Note Type Note Provider Name and Address Organization Details Recorded Time 02/19/2023 text/html Here today for r outine f/u, compliant to meds, no side effectsDepression/Anxi ety - under control with meds, sleeping good , mood is betterHe has significant sexual side effect with higher dose, getting better since dose was lowered.He has tried Bupropion and celexa in the pastWANTS TO LOWERvenlafaxine ER 75 mg qdUlcerative Colitis- Dr. Kerns, some flare ups off and on but betterMeds - was on mesalamine 4 grams qdH/O Kidney stone, s/p removal 12/02, cr was 1.5ED- getting much better Eitan Rmairez MD [address] [facility], [place], [address], [email or web address] 02/19/2023 14:43:55 02/25/2023 text/html Patient presents to clinic to discuss varicose veins of BLEs. States he had an ablation procedure 3-5 years ago of R leg only, and shortly after noticed return of varicocities. States he now has daily aching, soreness, interferes with ability to work. Has tried compression stockings without relief over the past year. Nixon Reyes MD [address], [place], [address], [email or web address] 02/26/2023 11:47:36 06/12/2023 text/html Here today for r outine f/u, compliant to meds, no side effectsDepression/Anxi ety - MEDS NOT HELPING, has not been sleeping goodHe has significant sexual side effect with higher dose,He has tried Bupropion and celexa in the pastanxiety getting worseHe lost job due to missing work ( ulcerative colitis related )venlafaxine ER 37.5 mg qdUlcerative Colitis- Dr. Kerns, some flare ups off and on but betterMeds on mesalamine 4 grams qdH/O Kidney stone, s/p removal 12/02, cr was 1.5ED- Eitan Ramirez MD [address], [place], [address], [employer] 06/12/2023 15:24:35 07/24/2023 text/html Here today for r outine f/u, compliant to meds, no side effectsand a med follow up on anxietyDepression/Anxi ety -under control with medsHe has significant sexual side effect with higher dose,He has tried Bupropion and celexa in the pastanxiety getting worseHe lost job due to missing work ( ulcerative colitis related )Meds- Buspirone 10mg, Venlafaxine ER 75 mg qd ,Ulcerative Colitis- Dr. Kerns, some flare ups off and onMeds on mesalamine 4 grams qdH/O Kidney stone, s/p removal 12/02, cr was 1.5, improvedED- no improvement Varicose veins on both legs, gets pain, seen Dr Carin newton ( insurance not covered ) Eitan Ramirez MD [address], [place], [address], [email or web address] 07/24/2023 10:15:27 02/10/2024 text/html Here today for r outine f/u, compliant to meds, no side effectsand a med follow up on anxiety because its not workingDepression/Anxi ety -under control with medsHe has significant sexual side effect with higher dose of venlafaxineHe has tried Bupropion and celexa in the pastanxiety getting worseHe lost job due to missing work ( ulcerative colitis related )Meds- Buspirone 10mg, Venlafaxine ER 75 mg qd ,Ulcerative Colitis- Dr. Kerns, some flare ups off and onHas lost 16 lbs since his last OVMeds on mesalamine 4 grams qd And Ondansetron for nausea NEEDS A REFILLH/O Kidney stone, s/p removal 12/02, cr was 1.5, improvedED- improved Varicose veins on both legs, gets pain, seen Dr Carin newton ( insurance not covered ) Has not seen the vascular surgeon yet but is scheduled Eitan Ramirez MD [address], [place], [address], [place] [facility] 02/10/2024 17:00:06
== END 2024-10-07 13:50 | disposition home or self-care (01) ==
PROVIDERS: PCP Internal Medicine; Referring Provider Nurse Practitioner; Visit Provider Internal Medicine Gastroenterology
PROC: 0DJ08ZZ Inspection of Upper Intestinal Tract, Via Natural or Artificial Opening Endoscopic (ICD-10-PCS; CPT 43239; principal; 2024-10-07 14:30)
DX: R11.0 Nausea (principal); K21.9 Gastro-esophageal reflux disease without esophagitis; F17.210 Nicotine dependence, cigarettes, uncomplicated; F12.90 Cannabis use, unspecified, uncomplicated
CPT/HCPCS: 43239; 88305; J2003; J2704; J7120

== ENCOUNTER 2025-04-19 00:30 | Day surgery (SDC) | payer OTHER, SELFPAY ==
[2025-03-31 15:04] VITALS: BMI 21.1
--- OUTSIDE RECORDS SUMMARY | 2025-04-19 00:33 | XMS_ITS | Patient Health Record ---
Author Organization [facility] Address [address] [place] [address] Care Team Providers Care Tankroom Worker Name Role Phone Naz Pool Unavailable [phone] James KENNEY, Eitan Unavailable Unavailable Reason For Referral No Information Social History Sex Assigned At : Social History Observation Description Sex Assigned At Male Encounters Encounter Location Date Provider Diagnosis [facility] [address] [facility] [address] [place] [address] 05/18/2024 Naz Pool Plan Of Treatment No Information Insurance Providers Payer Name Payer Address Payer Phone Subscriber Number Group Number Insured Name Patient Relationship to Insured Coverage Start Date Coverage End Date [employer] [address] [place] [address] [phone] [id number] YASHIRA ROSAS Self - patient is the insured [facility] Ppo [address] [address] [place] [address] [id number] ALISON YASHIRA Self - patient is the insured
--- OUTSIDE RECORDS SUMMARY | 2025-04-19 00:33 | XMS_ITS | Clinical Summary ---
Author Organization [facility] Physician Office Building [address] [place] [phone] Care Team Providers Care Batch And Furnace Manager Name Role Phone Eitan Ramirez MD Primary Care Provider Allergies No known active allergies Medications venlafaxine XR (EFFEXOR-XR) 75 mg 24 hr capsule Take 1 capsule (75 mg total) by mouth daily 8 Active multivit-silver miner blasting als/FA/lycopen e (MEN'S DAILY ORAL) Take by mouth Active mesalamine (CANASA) 1,000 mg suppositoryInd ications:Ulcer ative Proctitis Insert 1 suppository (1,000 mg total) into the rectum 2 (two) times a day Use as directed 60 suppository 11 9 Active mesalamine (LIALDA) 1.2 gram EC tabletIndicati ons:Ulcerative Colitis Take 1 tablet (1.2 g total) by mouth 2 (two) times a day 60 tablet 11 0 Active Additional Information Patient not taking.Reported on 03/09/2025 tamsulosin (FLOMAX) 0.4 mg extended release capsule Take 1 capsule (0.4 mg total) by mouth daily 0 Active buPROPion SR (WELLBUTRIN SR) 150 mg 12 hr tablet 0 Active levoFLOXacin (Levaquin) 500 mg tablet daily Active ondansetron (Zofran) 4 mg tablet every 6 hours Active HYDROcodone-ac etaminophen (HYCET) 10-300 mg/15 mL solution Take 15 mL by mouth every 6 (six) hours as needed Active omeprazole (PriLOSEC) 40 mg capsuleIndicat ions:Treatment of Non-Bleeding Gastric Disorder Take 1 capsule (40 mg total) by mouth daily 30 capsule 3 0 Active ALPRAZolam (XANAX) 0.5 mg tablet Bring both tablets to [address] day of procedure. 2 tablet 5 Active Additional Information Patient not taking.Reported on 12/22/2024 ALPRAZolam (XANAX) 0.5 mg tablet Bring both tablets to [address] day of procedure. 2 tablet 5 Active Active Problems Problem Noted Date Diagnosed Date Varicose veins of leg with pain, left 01/14/2025 Varicose veins of leg with pain, right 5 Varicose veins of both lower extremities with pa in 08/19/2024 Assessment & Plan (12/23/2024 10:49 AM CDT): Impression: Patient is status post stab phlebectomies to the right lower extremity. Stab phlebectomy sites are healed. Patient continues to complain of discomfort to his left lower extremity associated varicose veins. Patient is scheduled to undergo radiofrequency ablation with stab phlebectomies of the left lower extremity in January. Plan: Continue utilizing compression therapy until scheduled procedure. 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 Risks benefits alternatives to right GSV ablation and stab phlebectomies staged then followed by the left leg were discussed risks included bleeding, infection, DVT/PE, thermal injury, need further surgery he wished proceed. Assessment & Plan (08/19/2024 10:50 AM SCREW MACHINE SETTER): Bilateral lower extremity CEAP C3 disease symptomatic varicosities with previous right GSV ablation. Bilateral lower extremity reflux resident buyer ordered for further evaluation. Intractable vomiting 11/10/2019 Assessment & Plan (11/10/2019 7:40 PM SCREW MACHINE SETTER): Worsening. Etiology is unclear. It is however associated with weight loss and poor appetite. Recent Esophagogastroduodenoscopy performed in December 2018 did not reveal any obvious cause of vomiting. Will therefore repeat Esophagogastroduodenoscopy. Ulcerative proctitis with complication 0 Overview (06/14/2024): Year of diagnosis: 2018. Year symptoms began: 2018. Distribution: colonic (L2) Proctitis Extraintestinal manifestations: none. Complications: none. Prior treatments: mesalamine. Current treatment: n/a. Prior surgeries: none. Endoscopies: 01/07/2019 colonoscopy showed moderate amount of inflammation in rectum and stool throughout the colon. 10/28/2019 colonoscopy showed persistent moderate active proctitis. Imaging: n/a. Family History: n/a. Assessment & Plan (11/10/2019 7:40 PM SCREW MACHINE SETTER): Uncontrolled. The patient was on mesalamine suppository. He was given prescription for oral mesalamine but he apparently had not filled the prescription. He was encouraged to take the oral medication as well as the suppository. If his symptoms do not improve I will consider referral to a tertiary center. The care plan was discussed with his in attendance. Right inguinal hernia 11/10/2019 Assessment & Plan (11/10/2019 7:43 PM SCREW MACHINE SETTER): The patient was advised to follow-up with the general surgeon who reportedly has planned to perform herniorrhaphy on him. Encounter for screening colonoscopy 10/12/2019 Overview (10/12/2019): Added automatically from request for surgery [id number] Screen for colon cancer 12/08/2018 Overview (12/08/2018): Added automatically from request for surgery [id number] Intractable vomiting with nausea 09/21/2018 Assessment & Plan (10/08/2019 1:20 AM SCREW MACHINE SETTER): An upper endoscopy is recommended to clarify the diagnosis and guide therapy. The risks, benefits, and alternatives were discussed with the patient; he agrees to proceed. Rectal bleeding 09/21/2018 Assessment & Plan (11/10/2019 7:42 PM SCREW MACHINE SETTER): Worsening again to the patient. 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 Patient reportedly had CBC done at [facility] Emergency room earlier today. I will request for the CBC, CMP and CT abdomen records. Assessment & Plan (10/08/2019 1:20 AM SCREW MACHINE SETTER): A colonoscopy is recommended to clarify the diagnosis and guide therapy. The risks, benefits, and alternatives were discussed with the patient and he agrees to proceed. Encounters Date Type Department Care Team Description 03/09/2025 8:30 AM CDT Office Visit [facility] Vascular at [address] [place] [phone] Clarisse Richards PA Varicose veins of leg with pain, left (Primary Dx); Varicose veins of leg with pain, right 02/16/2025 9:00 AM CDT Ancillary Procedure [facility] Vascular and Vein Surgery at [address] [place] [phone] Varicose veins of leg with pain, left 01/17/2025 2:00 PM CDT Ancillary Procedure [facility] Vascular and Vein Surgery at [address] [place] [phone] Varicose veins of left lower extremity with pain from Last 3 Months Surgical History Surgery Date Site/Laterality Comments CHEST TUBE INSERTION left (spontaneous pneumo) COLONOSCOPY last screening 01/01, poor prep ESOPHAGOGASTRODUODENOSCOPY RENAL ARTERY STENT Medical History Medical History Date Comments Anxiety and depression Pneumothorax spontaneous Ulcerative colitis Family History Medical History Relation Name Comments No Known Problems Father No Known Problems Mother Relation Name Status Comments Father Alive Mother Alive Social History Tobacco Use Types Packs/Day Years Used Date Smoking Tobacco: Former E-cigarettes Smokeless Tobacco: Never Comments:Vape Alcohol Use Standard Drinks/Week Comments Never 0 (1 standard drink = 0.6 oz pur e alcohol) FORMER AUDIT-C Answer Date Recorded Q1: How often do you have a drink containing alc ohol? Never 11/10/2019 Average Number of Drinks Not on file 020 Frequency of Binge Drinking Not on file 10/17 PHQ-2 Answer Date Recorded PHQ-2 Total Score (If total score is 3 or more points, staff should administer the PHQ-9) 6 11/10/2019 Sex and Gender Information Value Date Recorded Sex Assigned at Not on file Legal Sex Male 3:14 AM SCREW MACHINE SETTER Gender Identity Not on file Sexual Orientation Not on file Obstetrics History Last Filed Vital Signs Vital Sign Reading Time Taken Comments Blood Pressure 102/68 03/09/2025 8:45 AM CDT Pulse 80 03/09/2025 8:45 AM CDT Temperature 36.7 C (98 F) 10/28/2019 8:16 AM SCREW MACHINE SETTER Respiratory Rate 14 11/15/2019 2:44 PM SCREW MACHINE SETTER Oxygen Saturation 96% 03/09/2025 8:45 AM CDT Inhaled Oxygen Concentration - - Weight 72.6 kg (160 lb) 03/09/2025 8:45 AM CDT Height 185.4 cm (6' 1) 03/09/2025 8:45 AM CDT Body Mass Index 21.11 03/09/2025 8:45 AM CDT Plan of Treatment Health Maintenance Due Date Last Done Comments Hepatitis C Screening 1975 Hepatitis B Screening 1993 Regular Well Visit/Exam 18-64 1993 Depression Screening 11/10/2020 11/10/2019, 09/21/19 19 Covid-19 Vaccine ( season) 2024 03/12/2021, 02/19/2021 Influenza Vaccine (#1) 2025 3, 07/30/2022, 06/13/2020, Additional history exists Colon Cancer Screening-Colonoscopy 10/28/2029 10/28/2019, 12/18/2018 DTaP/Tdap/Td Vaccine (2 - Td or Tdap) 03/13/2032 03/13/2022 Pneumococcal vaccine <65 Aged Out No longer eligible based on patient's age to complete this topic Procedures Procedure Name Priority Date/Time Associated Diagnosis Comments US VEIN DUPLEX LOWER EXTREMITY LEFT LIMITED Schedule Routine, Read Routine (OP Routine) 02/16/2025 9:00 AM CDT Varicose veins of leg with pain, left US VEIN DUPLEX LOWER EXTREMITY LEFT LIMITED Schedule Routine, Read Routine (OP Routine) 01/17/2025 2:09 PM CDT Varicose veins of left lower extremity with pain COLONOSCOPY 10/28/2019 9:54 AM SCREW MACHINE SETTER from Last 3 Months or Most Recently Relevant to Health Maintenance Results * US VEIN DUPLEX LOWER EXTREMITY LEFT LIMITED, UNILATERAL (02/16/2025 9:00 AM CDT) Anatomical Region Laterality Modality Vascular Left Ultrasound 02/16/2025 8:47 AM CDT Narrative 02/17/2025 9:26 AM CDT Vascular & Vein Surgery [address] [place] [id number] Lower Extremity Venous Report Patient Name: YASHIRA ROSAS : 1975 (49y 7m) Gender: M Study Date: 02/16/2025 08:47:01 AM Electronics Technology Instructor: LALITA Location: [facility] Order Provider: QUIQUE BARAJAS Quality: Adequate Ref Provider: QUIQUE BARAJAS PROCEDURES: Vascular Report: A non-invasive vascular imaging study of the left lower extremity veins was performed using B-mode ultrasound, color flow, and spectral Doppler. Limited study due to S/P RFA. INDICATIONS: S/P RFA Lt GSV (15 cm) with phlebectomies 01/14/25. HISTORY: Hx Rt GSV ablation. Former smoker. COMPARISONS: No change compared to prior study. The previous exam was completed on 01/17/25. FINDINGS: Left: Negative for deep vein thrombosis in the left common femoral vein. Normal compressibility and color filling, spontaneous and phasic flow, and response to distal augmentation is demonstrated in the left common femoral vein and saphenofemoral junction. Great saphenous vein is ablated from proximal to mid thigh. CONCLUSIONS: 1. Negative for deep vein thrombosis in the left common femoral vein. Great saphenous vein is ablated from proximal to mid thigh. ATTESTATION: I have reviewed and interpreted the pertinent images and measurements of this study. I attest to the conclusions in the final report that is provided above. Electronically Signed By: Quique Barajas MD 02/17/2025 9:26:20 AM CDT Procedure Note Quique Baraajs MD - 02/17/2025 Vascular & Vein Surgery [address] [place] [id number] Lower Extremity Venous Report Patient Name: YASHIRA ROSAS : 1975 (49y 7m) Gender: M Study Date: 02/16/2025 08:47:01 AM Electronics Technology Instructor: LALITA Location: [facility] Order Provider: QUIQUE BARAJAS Quality: Adequate Ref Provider: QUIQUE BARAJAS PROCEDURES: Vascular Report: A non-invasive vascular imaging study of the left lowerextremity veins was performed using B-mode ultrasound, color flow, and spectral Doppler.Limited study due to S/P RFA. INDICATIONS: S/P RFA Lt GSV (15 cm) with phlebectomies 01/14/25. HISTORY: Hx Rt GSV ablation. Former smoker. COMPARISONS: No change compared to prior study. The previous exam was completed on01/17/25. FINDINGS: Left: Negative for deep vein thrombosis in the left common femoral vein.Normal compressibility and color filling, spontaneous and phasic flow, andresponse to distal augmentation is demonstrated in the left common femoral vein andsaphenofemoral junction. Great saphenous vein is ablated from proximal to mid thigh. CONCLUSIONS: 1. Negative for deep vein thrombosis in the left common femoral vein.Great saphenous vein is ablated from proximal to mid thigh. ATTESTATION: I have reviewed and interpreted the pertinent images and measurements ofthis study. I attest to the conclusions in the final report that is provided above. Electronically Signed By: Quique Barajas MD 02/17/2025 9:26:20 AM CDT us Quique Barajas MD IMG US PROCEDURES Final Result * US VEIN DUPLEX LOWER EXTREMITY LEFT LIMITED, UNILATERAL (01/17/2025 2:09 PM CDT) Anatomical Region Laterality Modality Vascular Left Ultrasound 01/17/2025 1:51 PM CDT Narrative 01/18/2025 1:38 PM CDT Vascular & Vein Surgery [address] [place] [id number] Lower Extremity Venous Report Patient Name: YASHIRA ROSAS : 1975 (49y 6m) Gender: M Study Date: 01/17/2025 01:51:52 PM Electronics Technology Instructor: LALITA Location: [facility] Order Provider: QUIQUE BARAJAS Quality: Adequate Ref Provider: QUIQUE BARAJAS Report amended on 2025-01-18 at 13:28:48 CDT: Added/Modified: Conclusions [ADDED]: [ADDED] Rt Click to Free Text: Successful ablation of left great saphenous vein no evidence of deep vein thrombosis. Deleted: Conclusions: [REMOVED] Left DVT: There is no evidence of deep vein thrombosis in the left lower extremity. Previously Signed by:Quique Barajas MD 2025-01-18 13:27:58 CDT End of Addendum PROCEDURES: Vascular Report: A non-invasive vascular imaging study of the left lower extremity veins was performed using B-mode ultrasound, color flow, and spectral Doppler. Limited study due to S/P RFA. INDICATIONS: S/P RFA Lt GSV (15 cm) with phlebectomies 01/14/25. HISTORY: hx Rt GSV ablation. Former smoker. FINDINGS: Left: Negative for deep vein thrombosis in the left common femoral vein. Normal compressibility and color filling, spontaneous and phasic flow, and response to distal augmentation is demonstrated in the left common femoral vein and saphenofemoral junction. Great saphenous vein is ablated from proximal to mid thigh. CONCLUSIONS: 1. Successful ablation of left great saphenous vein no evidence of deep vein thrombosis. ATTESTATION: I have reviewed and interpreted the pertinent images and measurements of this study. I attest to the conclusions in the final report that is provided above. Electronically Signed By: Quique Barajas MD 2025-01-18 13:27:58 CDT Electronically Amended By: Quique Barajas MD 01/18/2025 1:28:48 PM CDT [ADDENDUM] Procedure Note Quique Barajas MD - 01/18/2025 Vascular & Vein Surgery [address] [place] [address]. [place] [address] Lower Extremity Venous Report Patient Name: YASHIRA ROSAS : 1975 (49y 6m) Gender: M Study Date: 01/17/2025 01:51:52 PM Electronics Technology Instructor: LALITA Location: [facility] Order Provider: QUIQUE BARAJAS Quality: Adequate Ref Provider: QUIQUE BARAJAS Report amended on 2025-01-18 at 13:28:48 CDT: Added/Modified: Conclusions [ADDED]: [ADDED] Rt Click to Free Text: Successful ablation of left great saphenousvein no evidence of deep vein thrombosis. Deleted: Conclusions: [REMOVED] Left DVT: There is no evidence of deep vein thrombosis in theleft lower extremity. Previously Signed by:Quique Barajas MD 2025-01-18 13:27:58 CDT End of Addendum PROCEDURES: Vascular Report: A non-invasive vascular imaging study of the left lowerextremity veins was performed using B-mode ultrasound, color flow, and spectral Doppler.Limited study due to S/P RFA. INDICATIONS: S/P RFA Lt GSV (15 cm) with phlebectomies 01/14/25. HISTORY: hx Rt GSV ablation. Former smoker. FINDINGS: Left: Negative for deep vein thrombosis in the left common femoral vein.Normal compressibility and color filling, spontaneous and phasic flow, andresponse to distal augmentation is demonstrated in the left common femoral vein andsaphenofemoral junction. Great saphenous vein is ablated from proximal to mid thigh. CONCLUSIONS: 1. Successful ablation of left great saphenous vein no evidence of deepvein thrombosis. ATTESTATION: I have reviewed and interpreted the pertinent images and measurements ofthis study. I attest to the conclusions in the final report that is provided above. Electronically Signed By: Quique Barajas MD 2025-01-18 13:27:58 CDT Electronically Amended By: Quique Barajas MD 01/18/2025 1:28:48 PM CDT [ADDENDUM] us Quique Barajas MD [facility] PROCEDURES Edited Result - Final * COLONOSCOPY (10/28/2019 9:54 AM SCREW MACHINE SETTER) Anatomical Region Laterality Modality Other Narrative Procedure Note Leonarda Pulido MD - 10/28/2019 9:[address] [facility] Patient Name: Yashira Rosas Procedure Date: 10/28/2019 9:54 AM Date of : 1975 Admit Type: Outpatient Age: 44 Gender: Male Note Status: Finalized Attending MD: Leonarda Pulido M.D. Procedure Date: 10/28/2019 Procedure: Colonoscopy Indications: Personal history of ulcerative colitis Providers: Leonarda Pulido M.D., Karlee Roberto CRNA (Anesthesia Staff), Crow Edouard RN Referring MD: Eitan Ramirez M.D. Medicines: Monitored Anesthesia Care Complications: No immediate complications. Estimated Blood Loss: Estimated blood loss was minimal. Procedure: Pre-Anesthesia Assessment: - Prior to the procedure, a History and Physical was performed, and patient medications and allergieswere reviewed. The patient is competent. The risks and benefits of the procedure and the sedation optionsand risks were discussed with the patient. All questions were answered and informed consent was obtained. Patient identification and proposed procedure were verified by the physician, the nurse and the cold roller in the procedure room. Mental Status Examination: alert and oriented. Airway Examination: normal oropharyngeal airway and neck mobility. Respiratory Examination: clear to auscultation. CV Examination: normal. Prophylactic Antibiotics: The patient does not require prophylactic antibiotics. Prior Anticoagulants: The patient has taken noprevious anticoagulant or antiplatelet agents. ASA Grade Assessment: II - A patient with mild systemicdisease. After reviewing the risks and benefits, the patientwas deemed in satisfactory condition to undergo the procedure. The anesthesia plan was to use monitored anesthesia care (MAC). Immediately prior to administration of medications, the patient was re-assessed for adequacy to receive sedatives. The heart rate, respiratory rate, oxygen saturations,blood pressure, adequacy of pulmonary ventilation, and response to care were monitored throughout the procedure. The physical status of the patient was re-assessed after the procedure. - The risks and benefits of the procedure and the sedation options and risks were discussed with the patient. All questions were answered and informed consent was obtained. After I obtained informed consent, the scope waspassed under direct vision. Throughout the procedure, the patient's blood pressure, pulse, and oxygensaturations were monitored continuously. The scope was passedunder direct vision. The Colonoscope was introducedthrough the anus and advanced to the the terminal ileum. The colonoscopy was performed without difficulty. The patient tolerated the procedure well. The quality of the bowel preparation was adequate. The bowel preparation used was SUPREP. Bowel prep was administered using a split dose. Findings: The terminal ileum appeared normal. Biopsies were taken with a cold forceps for histology. Estimated blood loss was minimal. The sigmoid colon, descending colon, transverse colon, ascendingcolon and cecum appeared normal. Inflammation characterized by congestion (edema), erythema,granularity, linear erosions and mucus was found in a continuous andcircumferential pattern in the rectum. This was moderate in severity. Biopsies were taken with a cold forceps for histology. Estimated blood loss was minimal. The exam was otherwise without abnormality on direct and retroflexion views. Impression: - The examined portion of the ileum was normal. Biopsied. - The sigmoid colon, descending colon, transverse colon, ascending colon and cecum are normal. - Proctitis ulcerative colitis. Inflammation wasfound in the rectum. This was moderate in severity.Biopsied. - The examination was otherwise normal on direct and retroflexion views. Recommendation: - Continue present medications. - Encourage better compliance with emesalamine suppositories and oral formulation. - Return to my office in 4 weeks. - Repeat colonoscopy in 6 months to assess disease activity. Procedure Code(s): --- Professional --- 45076, Colonoscopy, flexible; with biopsy, single or multiple Diagnosis Code(s): --- Professional --- K51.20, Ulcerative (chronic) proctitis without complications Z87.19, Personal history of other diseases of the digestive system CPT copyright 2017 [employer]. All rights reserved. The codes documented in this report are preliminary and upon baker pastry reviewmay be revised to meet current compliance requirements. Electronically signed by Leonarda Pulido M.D. Leonarda Pulido M.D. 10/28/2019 10:39:56 AM Number of Addenda: 0 Note Initiated On: 10/28/2019 9:54 AM Leonarda Pulido MD ENDOSCOPY PROCEDURES Fi nal Result from Last 3 Months or Most Recently Relevant to Health Maintenance Insurance [employer] C[employer] Care Teams Batch And Furnace Manager Relationship Specialty Start Date End Date Eitan Ramirez MD PCP - General Internal Medicine 09/10/18
--- OUTSIDE RECORDS SUMMARY | 2025-04-19 00:33 | XMS_ITS | Clinical Summary ---
Author Organization [facility] [employer] Address [address] [place] [address] Care Team Providers Care Pipe Stem Repairer Name Role Phone Eitan Ramirez MD Primary Care Provider Source Comments [facility], formerly [facility],non-owned Affiliates and Associated Physician Practices is amultiple site organization consisting of ambulatory clinics and hospital sitesin [place], [place], [place] and [place]. This disclosure is being madepursuant to the Care Everywhere program and may not contain all information available regarding this patient. Last updated 18.[facility] [employer] Active Problems Problem Noted Date Diagnosed Date Closed fracture of sacrum 11/30/2014 Closed fracture of clavicle 04/10/2014 Injury 04/08/2014 Social History Tobacco Use Types Packs/Day Years Used Date Smoking Tobacco: Former Cigarettes Alcohol Use Standard Drinks/Week Comments No 0 (1 standard drink = 0.6 oz pur e alcohol) Sex and Gender Information Value Date Recorded Sex Assigned at Not on file Legal Sex Male 5:33 PM MACHINE TAPER Gender Identity Not on file Sexual Orientation Not on file Last Filed Vital Signs Vital Sign Reading Time Taken Comments Blood Pressure 120/70 09/28/2014 10:12 AM MACHINE TAPER Pulse 74 04/28/2014 11:35 AM CDT Temperature 37 C (98.6 F) 11/30/2014 9:14 AM CDT Respiratory Rate 18 04/13/2014 8:27 AM CDT Oxygen Saturation 93% 04/13/2014 8:27 AM CDT Inhaled Oxygen Concentration - - Weight 78.9 kg (174 lb) 11/30/2014 9:14 AM CDT Height 185.4 cm (6' 1) 11/30/2014 9:14 AM CDT Body Mass Index 22.96 11/30/2014 9:14 AM CDT Plan of Treatment Health Maintenance Due Date Last Done Comments COLOGUARD (AGES 45-75) - COL ON CA SCREENING 1975 COLON MONITORING 1975 COLONOSCOPY - COLON CA SCREENING 1975 CT COLONOGRAPHY - COLON CA SCREENING 1975 Colorectal Cancer Screening 1975 FIT - COLON CA SCREENING 1975 FLEX SIG - COLON CA SCREENING 1975 LIPID TESTING 1975 HIV SCREENING 1990 HEPATITIS C SCREENING 07/10/1993 DTAP/TDAP/TD VACCINES (1 - Tdap) 1994 HEPATITIS B VACCINE (1 of 3 - 19+ 3-dose series) 1994 COVID-19 VACCINE (1 - 2023-2 5 season) 2024 DEPRESSION SCREENING 09/15/2024 INFLUENZA VACCINE (#1) 2025 ZOSTER VACCINE (1 of 2) 2025 HIB VACCINE Aged Out No longer eligi ble based on patient's age to complete this topic HPV VACCINE Aged Out No longer eligi ble based on patient's age to complete this topic MENINGOCOCCAL (Group B) VACC INE SHARED DECISION-MAKING Aged Out No longer eligibl e based on patient's age to complete this topic MENINGOCOCCAL GROUPS A/C/Y/W VACCINE Aged Out No longer eligible b ased on patient's age to complete this topic Insurance SELF PAY NO INSURANCE Member Subscriber Plan / Payer (Ef fective for All Dates) Name:Yashira Rosas Member ID:Not on file Relation to Subscriber:Not on file Name:YASHIRA ROSAS Subscriber ID:Not on file (Home) Address: [address] [place] [address] Payer ID:Not on file Group ID:Not on file Type:Self Pay Address: [place], [place] [employer] Care Teams Pipe Stem Repairer Relationship Specialty Start Date End Date Eitan Ramirez MD [address] [facility] [address] [place] [phone] PCP - General 08/03/14
--- OUTSIDE RECORDS SUMMARY | 2025-04-19 00:33 | XMS_ITS | Referral Summary ---
Author Organization [facility] Physician Office Building [address] [place] [address] Care Team Providers Care Preschool Lead Teacher Name Role Phone Eitan Ramirez MD Primary Care Provider [phone] Encounters Date Type Department Care Team Description 03/09/2025 8:30 AM CDT Office Visit [facility] Vascular at [address] [address] Clarisse Richards PA Varicose veins of leg with pain, left (Primary Dx); Varicose veins of leg with pain, right 02/16/2025 9:00 AM CDT Ancillary Procedure [facility] Vascular and Vein Surgery at [address] [address] Varicose veins of leg with pain, left 01/17/2025 2:00 PM CDT Ancillary Procedure [facility] Vascular and Vein Surgery at [address] [address] Varicose veins of left lower extremity with pain from Last 3 Months Allergies No known active allergies Medications venlafaxine XR (EFFEXOR-XR) 75 mg 24 hr capsule Take 1 capsule (75 mg total) by mouth daily 8 Active multivit-glove examiner als/FA/lycopen e (MEN'S DAILY ORAL) Take by [...] procedure. Assessment & Plan (09/02/2024 9:46 AM DRUM SANDER SETTER): Bilateral lower extremity CEAP C3 disease [...] proceed. 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 Bilateral lower extremity reflux human resources operations coordinator ordered for further evaluation. Intractable vomiting 11/10/2019 Assessment & Plan (11/10/2019 7:40 PM DRUM SANDER SETTER): Worsening. Etiology is unclear. It is [...] n/a. Assessment & Plan (11/10/2019 7:40 PM DRUM SANDER SETTER): Uncontrolled. The patient was on mesalamine [...] 11/10/2019 Assessment & Plan (11/10/2019 7:43 PM DRUM SANDER SETTER): The patient was advised to follow-up with the general surgeon who reportedly has planned to perform herniorrhaphy on him. Encounter for screening colonoscopy 10/12/2019 Overview (10/12/2019): Added automatically from request for surgery [id number] Screen for colon cancer 12/08/2018 Overview (12/08/2018): Added automatically from request for surgery [id number] Intractable vomiting with nausea 09/21/2018 Assessment & Plan (10/08/2019 1:20 AM DRUM SANDER SETTER): An upper endoscopy is recommended to clarify the diagnosis and guide therapy. The risks, benefits, and alternatives were discussed with the patient; he agrees to proceed. Rectal bleeding 09/21/2018 Assessment & Plan (11/10/2019 7:42 PM DRUM SANDER SETTER): Worsening again to the patient. 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 Patient reportedly had CBC done at [facility] Emergency room earlier today. I will request for the CBC, CMP and CT abdomen records. Assessment & Plan (10/08/2019 1:20 AM DRUM SANDER SETTER): A colonoscopy is recommended to clarify the diagnosis and guide therapy. The risks, benefits, and alternatives were discussed with the patient and he agrees to proceed. Social History Tobacco Use Types Packs/Day Years [...] on file Legal Sex Male 3:14 AM DRUM SANDER SETTER Gender Identity Not on file Sexual Orientation Not on file Last Filed Vital Signs Vital Sign Reading Time Taken Comments Blood Pressure 102/68 03/09/2025 8:45 AM CDT Pulse 80 03/09/2025 8:45 AM CDT Temperature 36.7 C (98 F) 10/28/2019 8:16 AM DRUM SANDER SETTER Respiratory Rate 14 11/15/2019 2:44 PM DRUM SANDER SETTER Oxygen Saturation 96% 03/09/2025 8:45 AM CDT Inhaled Oxygen Concentration - - Weight 72.6 kg (160 lb) 03/09/2025 8:45 AM CDT Height 185.4 cm (6' 1) 03/09/2025 8:45 AM CDT Body Mass Index 21.11 03/09/2025 8:45 AM CDT Plan of Treatment Not on file Procedures Procedure Name Priority Date/Time Associated Diagnosis Comments US VEIN DUPLEX LOWER EXTREMITY LEFT LIMITED Schedule Routine, Read Routine (OP Routine) 02/16/2025 9:00 AM CDT Varicose veins of leg with pain, left US VEIN DUPLEX LOWER EXTREMITY LEFT LIMITED Schedule Routine, Read Routine (OP Routine) 01/17/2025 2:09 PM CDT Varicose veins of left lower extremity with pain COLONOSCOPY 10/28/2019 9:54 AM DRUM SANDER SETTER from Last 3 Months or Most Recently Relevant to Health Maintenance Results * US VEIN DUPLEX LOWER EXTREMITY LEFT LIMITED, UNILATERAL (02/16/2025 9:00 AM CDT) Anatomical Region Laterality Modality Vascular Left Ultrasound 02/16/2025 8:47 AM CDT Narrative 02/17/2025 9:26 AM CDT Vascular & Vein Surgery [address] [place] [address] Lower Extremity Venous Report Patient Name: YASHIRA ROSAS : 1975 (49y 7m) Gender: M Study Date: 02/16/2025 08:47:01 AM Deal Architect: LALITA Location: [facility] Order Provider: QUIQUE BARAJAS Quality: Adequate Ref Provider: HOLLAND,QUIQUE PROCEDURES: Vascular Report: A non-invasive vascular imaging [...] 02/17/2025 9:26:20 AM CDT Procedure Note Quique Barajas MD - 02/17/2025 Vascular & Vein Surgery [address] [place] [id number] Lower Extremity Venous Report Patient Name: YASHIRA ROSAS : 1975 (49y 7m) Gender: M Study Date: 02/16/2025 08:47:01 AM Deal Architect: LALITA Location: [facility] Order Provider: QUIQUE BARAJAS [...] 1:38 PM CDT Vascular & Vein Surgery [address] [place] [address] Lower Extremity Venous Report Patient Name: YASHIRA ROSAS : 1975 (49y 6m) Gender: M Study Date: 01/17/2025 01:51:52 PM Deal Architect: LALITA Location: [facility] Order Provider: QUIQUE BARAJAS [...] MD - 01/18/2025 Vascular & Vein Surgery [address] [place] [address] Lower Extremity Venous Report Patient Name: YASHIRA ROSAS : 1975 (49y 6m) Gender: M Study Date: 01/17/2025 01:51:52 PM Deal Architect: LALITA Location: [facility] Order Provider: QUIQUE BARAJAS [...] Barajas MD 01/18/2025 1:28:48 PM CDT [ADDENDUM] Quique Barajas MD [facility] PROCEDURES Edited Result - Final * COLONOSCOPY (10/28/2019 9:54 AM DRUM SANDER SETTER) Anatomical Region Laterality Modality Other Narrative Procedure Note Leonarda Pulido MD - 10/28/2019 9:54 AM CST [facility] Endoscopy Lab Patient Name: Yashira Rosas Procedure [...] by the physician, the nurse and the service delivery consultant in the procedure room. Mental Status Examination: [...] disease activity. Procedure Code(s): --- Professional --- 22238, Colonoscopy, flexible; with biopsy, single or multiple Diagnosis Code(s): --- Professional --- K51.20, Ulcerative (chronic) proctitis without complications Z87.19, Personal history of other diseases of the digestive system CPT copyright 2017 [employer]. All rights reserved. The codes documented in this report are preliminary and upon players club representative reviewmay be revised to meet current compliance requirements. Electronically signed by Leonarda Pulido M.D. Leonarda Pulido M.D. 10/28/2019 10:39:56 AM Number of Addenda: 0 Note Initiated On: 10/28/2019 9:54 AM Leonarda Pulido MD ENDOSCOPY PROCEDURES Fi nal Result from Last 3 Months or Most Recently Relevant to Health Maintenance Insurance [employer] Care Teams Preschool Lead Teacher Relationship Specialty Start Date End Date Eitan Ramirez MD PCP - General Internal Medicine 09/10/18
--- OUTSIDE RECORDS SUMMARY | 2025-04-19 00:33 | XMS_ITS | Clinical Summary ---
Author Organization [facility] [employer] [place] Address [address] [place] [address] Care Team Providers Care Monogram Technician Name Role Phone Eitan Ramirez MD Primary Care Provider [phone] Medications No known medications Active Problems No known active problems Immunizations Immunization Administration Dates Next Due INFLUENZA VACCINE QUADRIVALENT 3 YR UP PF IM INFLUENZA VACCINE QUADRIVALENT 6 MOS UP IM 06/16,06/18/2018 INFLUENZA VACCINE QUADRIVALENT 6 MOS UP PF IM Social History Tobacco Use Types Packs/Day Years Used Date Smoking Tobacco: Never Assessed Sex and Gender Information Value Date Recorded Sex Assigned at Not on file Legal Sex Male 12:51 PM CDT Gender Identity Not on file Sexual Orientation Not on file Last Filed Vital Signs Vital Sign Reading Time Taken Comments Blood Pressure 108/64 05/27/2019 7:18 AM CDT Pulse 80 06/04/2018 7:45 AM CDT Temperature - - Respiratory Rate - - Oxygen Saturation - - Inhaled Oxygen Concentration - - Weight 73.5 kg (162 lb) 05/27/2019 7:18 AM CDT Height 185.4 cm (6' 1) 05/27/2019 7:18 AM CDT Body Mass Index 21.37 05/27/2019 7:18 AM CDT Plan of Treatment Health Maintenance Due Date Last Done Comments DTAP/TDAP/TD VACCINES (1 - Tdap) 1994 HEPATITIS B VACCINES (1 of 3 - 19+ 3-dose series) 1994 COLORECTAL SCREENING 2020 Colorectal Cancer Screening 2020 FIT-DNA Q 3 years 2020 FIT/FOBT Q 1 year 2020 Flex Sig/CT Colonography Q 5 years 2020 INFLUENZA VACCINE (#1) 2025 0, 06/16/2019, 06/18/2018, Additional history exists Care Teams Monogram Technician Relationship Specialty Start Date End Date Eitan Ramirez MD [address] [address] PCP - General Internal Medicine 06/04/18
[2025-04-19 11:43] VITALS: BP 114/74; PULSE 80; RESP 18; TEMP 36.1; O2SAT 96; BMI 19.8
[2025-04-19] MEDS: LACTATED RINGERS 1,000 ML 150 ML IV CONT (11:49)
--- NOTE | 2025-04-19 12:35 | P.PNAN_ITS ---
Anes - Initial Pre Proc Eval Procedure: Operation Date: 04/19/25 13:00 Proposed Procedures p Flexible Sigmoidoscopy - Daron Jacome MD Date/Time: 04/19/25 12:35 Surgeon: Daron Jacome MD Pre Op Diagnosis: Hemorrhage of anus and rectum Patient Data Age: 49 Gender: M Height: 1.85 m Weight: 68 kg Last Vital Signs Temp 36.1 C L 04/19/25 11:43 Pulse 80 04/19/25 11:43 Resp 18 04/19/25 11:43 BP 114/74 04/19/25 11:43 Pulse Ox 96 04/19/25 11:43 O2 Del Method Room Air 04/19/25 11:43 Allergies Allergy/AdvReac Type Severity Reaction Status Date / Time No Known Allergies Allergy Verified 04/19/25 11:41 Home Medications ?Medication ?Instructions ?Recorded ?Confirmed ?Type omeprazole 40 mg capsule,delayed 40 mg PO DAILY 1 month #30 caps 07/08/24 04/19/25 Rx release venlafaxine 75 mg capsule,extended 75 mg PO DAILY 07/08/24 04/19/25 History release 24 hr mesalamine 1.2 gram tablet,delayed 2.4 g PO DAILY 09/29/24 03/31/25 History release mesalamine 1,000 mg rectal See Rx Instructions .Route 01/11/25 03/31/25 Rx suppository .COMPLEX #30 supp Patient hx anesthesia problems: none Family hx anesthesia problems: none Results Review: All pre-operative results and documents have been reviewed as part of the pre- operative evaluation. [facility] Past Medical History Medical History Rectal bleeding GERD (gastroesophageal reflux disease) Nausea Gastritis and duodenitis Rectal nodule Anxiety Erectile dysfunction Tobacco use Venous stasis Varicose veins of both legs with edema Kidney stone Depression Ulcerative colitis Social History Social History Smoking packs per day: 1 Smoking cigarettes per day: 20.0 Years smoked: 5 Smoking pack-years: 5.00 Smoking status: Former smoker Tobacco type: cigarettes and e-cigarettes/vaping Alcohol intake: never Substance use: current Substance use type: marijuana Other substance usage details: Marijuana daily Last use: daily Living arrangements: with family Spiritual care concerns: No Anes - Eval Final PreProcedure Day of Procedure 04/19/25 12:35 Patient weight: thin Heart: regular rate and rhythm Lungs: decreased breath sounds Airway: Mallampati scale class II Neurological: alert and oriented Last oral intake: >/= 8 hours ASA classification: III Emergent: no Anesthetic plan: proceed Anesthesia type and monitoring: general GIVS and standard monitoring Results Review: All pre-operative results and documents have been reviewed as part of the pre- operative evaluation. Informed Consent: The patient's anesthetic plan and its attendant risks and benefits were discussed with the patient/family/POA. Questions were solicited and answers provided to the satisfaction of the patient/family/POA.
--- NOTE | 2025-04-19 12:39 | PM.HPGS ---
History of Present Illness History of Present Illness Consent: Risks, benefits, and alternatives have been discussed and questions answered. Patient agrees to proceed with procedure. Chief complaint: Hemorrhage of anus and rectum Narrative: Mejia Duarte is a 49 year old male with ulcerative proctitis diagnosed in 2018, on mesalamine suppository but sometimes with blood in stool and urgency, never had been on biologics. Review of Systems Review of Systems: All systems reviewed & are unremarkable except as noted in HPI and below PMFSH Past Medical History Medical History (Updated 04/19/25 @ 12:40 by Daron Jacome MD) Ulcerative proctitis Rectal bleeding GERD (gastroesophageal reflux disease) Nausea Gastritis and duodenitis Rectal nodule Anxiety Erectile dysfunction Tobacco use Venous stasis Varicose veins of both legs with edema Kidney stone Depression Ulcerative colitis Social History Social History Smoking packs per day: 1 Smoking cigarettes per day: 20.0 Years smoked: 5 Smoking pack-years: 5.00 Smoking status: Former smoker Tobacco type: cigarettes and e-cigarettes/vaping Alcohol intake: never Substance use: current Substance use type: marijuana Other substance usage details: Marijuana daily Last use: daily Living arrangements: with family Spiritual care concerns: No Meds Home Medications and Allergies Home Medications ?Medication ?Instructions ?Recorded ?Confirmed ?Type omeprazole 40 mg capsule,delayed 40 mg PO DAILY 1 month #30 caps 07/08/24 04/19/25 Rx release venlafaxine 75 mg capsule,extended 75 mg PO DAILY 07/08/24 04/19/25 History release 24 hr mesalamine 1.2 gram tablet,delayed 2.4 g PO DAILY 09/29/24 03/31/25 History release mesalamine 1,000 mg rectal See Rx Instructions .Route 01/11/25 03/31/25 Rx suppository .COMPLEX #30 supp Allergies Allergy/AdvReac Type Severity Reaction Status Date / Time No Known Allergies Allergy Verified 04/19/25 11:41 Vital Signs Vital Signs - 24 hr 04/19/25 11:43 Temperature 97 F L Pulse Rate 80 Respiratory Rate 18 Blood Pressure 114/74 Pulse Oximetry 96 Oxygen Delivery Room Air Exam Const: General: comfortable and no acute distress HENMT: Face/Nose/Sinus: Normal nares present Eyes: General: appearance normal, both eyes and all related structures Neck: Neck: no JVD Resp: Auscultation: clear to auscultation bilaterally Cardio: Rate: regular rate Rhythm: regular rhythm GI: Inspection: non-distended GI Palp: Yes Soft to palpation Skin: General skin exam: normal color Neuro: General: gait normal Speech: normal speech Extrem: General: normal to inspection Psych: Mental Status: mental status grossly normal Assessment and Plan Assessment and plan (1) Ulcerative proctitis: Code(s): K51.20 - Ulcerative (chronic) proctitis without complications Status: Acute Assessment and Plan: sigmoidoscopy
--- NOTE | 2025-04-19 12:53 | S_PTH ---
PATIENT: Mejia Duarte LOC: [facility]#:[id number] AGE/SX: 49/M ROOM: RE04/19/[address]: Daron Jacome MD : 1975 BED: DIS: 04/19/2025 SPEC #: [id number] RECD: 04/19/25 13:17 STATUS: JOSEPH REDany #: [id number] DENY: 04/19/25 12:[address]: Daron Jacome DEPT: [facility] Surgical RECD BY: Rosanna Dawson ENTERED: 04/19/25 13:18 SP TYPE: Surgical OTHR DR: Eitan RamirezMD Tissues: A - Colon Polypectomy B - Colon Biopsy Procedures: Hematoxylin and Eosin Stain Gross and Microscopic Level 4
[2025-04-19 12:57] VITALS: BP 86/54; PULSE 73; RESP 21; O2SAT 97
[2025-04-19 13:07] VITALS: BP 98/64; PULSE 74; RESP 18; O2SAT 99
[2025-04-19 13:17] VITALS: BP 103/66; PULSE 70; RESP 22; O2SAT 100
== END 2025-04-19 13:25 | disposition home or self-care (01) ==
PROVIDERS: PCP Internal Medicine; Referring Provider Nurse Practitioner Family; Visit Provider Internal Medicine Gastroenterology
PROC: 0DJD8ZZ Inspection of Lower Intestinal Tract, Via Natural or Artificial Opening Endoscopic (ICD-10-PCS; CPT 45330; principal; 2025-04-19 13:00)
DX: K51.20 Ulcerative (chronic) proctitis without complications (principal); K63.5 Polyp of colon; K64.8 Other hemorrhoids; F12.90 Cannabis use, unspecified, uncomplicated; Z87.891 Personal history of nicotine dependence
CPT/HCPCS: 45385; 45380; 88305; J2003; J2704; J7120

== ENCOUNTER 2025-06-14 11:43 | Outpatient (CLI) | payer OTHER, SELFPAY ==
--- OUTSIDE RECORDS SUMMARY | 2025-06-14 11:58 | XMS_ITS | Clinical Summary ---
Author Organization [facility] [employer] Address [address] [place] [address] Care Team Providers Care Landscape Architect Name Role Phone Eitan Ramirez MD Primary Care Provider [phone] Source Comments [facility],non-owned Affiliates and Associated Physician Practices is amultiple site organization consisting of ambulatory clinics and hospital sitesin [place], [place], [place] and [place]. This disclosure is being madepursuant to the Care Everywhere program and may not contain all information available regarding this patient. Last updated 18.[facility] [employer] Active Problems Problem Noted Date Diagnosed Date [...] on file Legal Sex Male 5:33 PM COMPUTER SUPPORT TECHNICIAN Gender Identity Not on file Sexual Orientation Not on file Last Filed Vital Signs Vital Sign Reading Time Taken Comments Blood Pressure 120/70 09/28/2014 10:12 AM COMPUTER SUPPORT TECHNICIAN Pulse 74 04/28/2014 11:35 AM CDT Temperature [...] of 3 - 19+ 3-dose series) 1994 DEPRESSION SCREENING 09/15/2024 COVID-19 VACCINE (1 - 2023-2 5 season) 2025 INFLUENZA VACCINE (#1) 2025 ZOSTER VACCINE (1 [...] ROSAS Subscriber ID:Not on file (Home) Address: [address] [place] [address] Payer ID:Not on file Group ID:Not on file Type:Self Pay Address: [place], [place] [employer] Care Teams Landscape Architect Relationship Specialty Start Date End Date Eitan Ramirez MD [address] [facility] [address] [place] [phone] PCP - General 08/03/14
--- OUTSIDE RECORDS SUMMARY | 2025-06-14 11:58 | XMS_ITS | Patient Health Record ---
Author Organization [facility] [employer] Address [address] [facility] [address] [place] [address] Care Team Providers Care Glass Beveler Name Role Phone Albertojeannie Naz Unavailable [phone] James KENNEY, Eitan Unavailable Unavailable Reason For Referral No Information Social History Sex Assigned At : Social History Observation Description Sex Assigned At Male Plan Of Treatment No Information Insurance Providers Payer Name Payer Address Payer Phone Subscriber Number Group Number Insured Name Patient Relationship to Insured Coverage Start Date Coverage End Date Cigna [address] [place], [place] [phone] [id number] YASHIRA ROSAS Self - patient is the insured [facility] Ppo [address] [address] [place] [address] [id number] YASHIRA ROSAS Self - patient is the insured
--- OUTSIDE RECORDS SUMMARY | 2025-06-14 11:58 | XMS_ITS | Clinical Summary ---
Author Organization [facility] [employer] [place] Address [address] [place] [address] Care Team Providers Care Program Research Specialist Name Role Phone Eitan Ramirez MD Primary Care Provider [phone] Medications No known medications Active Problems No [...] 06/16/2019, 06/18/2018, Additional history exists Care Teams Program Research Specialist Relationship Specialty Start Date End Date Eitan Ramirez MD [address] [address] PCP - General Internal Medicine 06/04/18
--- OUTSIDE RECORDS SUMMARY | 2025-06-14 11:58 | XMS_ITS | Clinical Summary ---
Author Organization [facility] Physician Office Building [address] [place] [id number] Care Team Providers Care Lidar Technician Name Role Phone Eitan Ramirez MD Primary Care Provider Allergies No known active allergies Medications venlafaxine XR (EFFEXOR-XR) 75 mg 24 hr capsule Take 1 capsule (75 mg total) by mouth daily 8 Active multivit-miner assistant als/FA/lycopen e (MEN'S DAILY ORAL) Take by [...] procedure. Assessment & Plan (09/02/2024 9:46 AM CYCLE TOURING GUIDE): Bilateral lower extremity CEAP C3 disease with [...] proceed. 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 Intractable vomiting 11/10/2019 Assessment & Plan (11/10/2019 7:40 PM CYCLE TOURING GUIDE): Worsening. Etiology is unclear. It is however [...] n/a. Assessment & Plan (11/10/2019 7:40 PM CYCLE TOURING GUIDE): Uncontrolled. The patient was on mesalamine suppository. [...] 11/10/2019 Assessment & Plan (11/10/2019 7:43 PM CYCLE TOURING GUIDE): The patient was advised to follow-up with the general surgeon who reportedly has planned to perform herniorrhaphy on him. Encounter for screening colonoscopy 10/12/2019 Overview (10/12/2019): Added automatically from request for surgery [id number] Screen for colon cancer 12/08/2018 Overview (12/08/2018): Added automatically from request for surgery [id number] Intractable vomiting with nausea 09/21/2018 Assessment & Plan (10/08/2019 1:20 AM CYCLE TOURING GUIDE): An upper endoscopy is recommended to clarify the diagnosis and guide therapy. The risks, benefits, and alternatives were discussed with the patient; he agrees to proceed. Rectal bleeding 09/21/2018 Assessment & Plan (11/10/2019 7:42 PM CYCLE TOURING GUIDE): Worsening again to the patient. 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 Patient reportedly had CBC done at [facility] Emergency room earlier today. I will request for the CBC, CMP and CT abdomen records. Assessment & Plan (10/08/2019 1:20 AM CYCLE TOURING GUIDE): A colonoscopy is recommended to clarify the diagnosis and guide therapy. The risks, benefits, and alternatives were discussed with the patient and he agrees to proceed. Surgical History Surgery Date Site/Laterality Comments CHEST [...] on file Legal Sex Male 3:14 AM CYCLE TOURING GUIDE Gender Identity Not on file Sexual Orientation Not on file Obstetrics History Last Filed Vital Signs Vital Sign Reading Time Taken Comments Blood Pressure 102/68 03/09/2025 8:45 AM CDT Pulse 80 03/09/2025 8:45 AM CDT Temperature 36.7 C (98 F) 10/28/2019 8:16 AM CYCLE TOURING GUIDE Respiratory Rate 14 11/15/2019 2:44 PM CYCLE TOURING GUIDE Oxygen Saturation 96% 03/09/2025 8:45 AM CDT [...] 11/10/2019, 09/21/19 19 Covid-19 Vaccine ( season) 2025 03/12/2021, 02/19/2021 Influenza Vaccine (#1) 2025 3, 07/30/2022, 06/13/2020, Additional history exists Colon Cancer Screening-Colonoscopy 10/28/2029 10/28/2019, 12/18/2018 DTaP/Tdap/Td Vaccine (2 - Td or Tdap) 03/13/2032 03/13/2022 Pneumococcal vaccine <65 Aged Out No longer eligible based on patient's age to complete this topic Procedures Procedure Name Priority Date/Time Associated Diagnosis Comments COLONOSCOPY 10/28/2019 9:54 AM CYCLE TOURING GUIDE from Last 3 Months or Most Recently Relevant to Health Maintenance Results * COLONOSCOPY (10/28/2019 9:54 AM CYCLE TOURING GUIDE) Anatomical Region Laterality Modality Other Narrative Procedure Note Leonarda Pulido MD - 10/28/2019 9:54 AM CST [facility] Endoscopy [facility] Patient Name: Mejia Duarte Procedure Date: 10/28/2019 9:54 AM Date of : 1975 Admit Type: Outpatient Age: 44 Gender: Male Note Status: Finalized Attending MD: Leonarda Pulido M.D. Procedure Date: 10/28/2019 Procedure: Colonoscopy Indications: Personal history of ulcerative colitis Providers: Leonarda Pulido M.D., Karlee Roberto HIDE AND SKIN CLASSER (Anesthesia Staff), Crow Edouard RN Referring MD: [...] by the physician, the nurse and the bottom polisher in the procedure room. Mental Status Examination: [...] disease activity. Procedure Code(s): --- Professional --- 00673, Colonoscopy, flexible; with biopsy, single or multiple Diagnosis Code(s): --- Professional --- K51.20, Ulcerative (chronic) proctitis without complications Z87.19, Personal history of other diseases of the digestive system CPT copyright 2017 [employer]. All rights reserved. The codes documented in this report are preliminary and upon security administrator reviewmay be revised to meet current compliance requirements. Electronically signed by Leonarda Pulido M.D. Leonarda Pulido M.D. 10/28/2019 10:39:56 AM Number of Addenda: 0 Note Initiated On: 10/28/2019 9:54 AM Leonarda Pulido MD ENDOSCOPY PROCEDURES Fi nal Result from Last 3 Months or Most Recently Relevant to Health Maintenance Insurance [employer] C[employer] Care Teams Lidar Technician Relationship Specialty Start Date End Date Eitan Ramirez MD PCP - General Internal Medicine 09/10/18
--- OUTSIDE RECORDS SUMMARY | 2025-06-14 11:59 | XMS_ITS | Data Portability ---
Author Organization [facility] [employer], Main Office Address [address] [place] [address] Assessment Encounter Date Assessment Date Assessment LastModified [...] Modified Time Details Appointments None recorded. Lab lipid panel, serum 2024 025 5 [facility] Orders, [address] [place], [address], 5 08:53:06 CBC w/ auto diff 2024 025 [email or web address] [facility] Orders, [address] [place], [address], 5 08:53:06 CMP, serum or plasma 2024 025 [email or web address] 5 [facility] Orders, [address] [place], [address], 5 08:53:06 CBC w/ auto diff 2022 023 STAN [facility], 2022 Margarita Carvalho, [address], [address], 3 19:15:51 CBC w/ auto diff 2022 023 [email or web address] [facility], 2022 Margarita Carvalho, [address], [place], [address], 3 08:39:57 CMP, serum or plasma 2022 023 [email or web address] [facility], 2022 Margarita Carvalho, [address], [place], [address], 3 08:39:57 Referral vascular surgeon referral 2022 023 [email or web address] Brown Barajas, [address] [facility] [address], [place], [address], 3 08:09:45 Procedures None recorded. Surgeries None recorded. Imaging US, duplex, venous, lower extremity 2022 023 [facility], [address] [place] [address], [address], 3 09:05:12 Medication Orders ondansetron 4 mg disintegrat ing tablet 2023 024 [email or web address] [id number], [address] [facility], [place], [address], 5 16:35:35 mirtazapine 15 mg tablet 2023 024 [email or web address] [id number], [address] , [place], [address], 5 16:35:15 venlafaxine ER 75 mg capsule,ext ended release 24 hr 2022 023 [email or web address] [id number], [address], [place], [address], 3 17:38:05 buspirone 10 mg tablet 2022 023 [email or web address] [id number], [address] , [place], [address], 16:31:35 Patient TargetsNo targets recorded. Patient InstructionsNo instructions [...] 5.8 x10'3 /uL 4.2-10 .8 Not Available [facility] (Lab) [address] [place], [address], 07/24/2023 19:15:51 07/24/20 23 07/24/2023 CBC/C OMPLE TE BLD COUNT W/DIF F red blood cells 4.62 x10'6 /uL 4.10-5 .80 Not Available [facility] (Lab) [address] [place], [address], 07/24/2023 19:15:51 07/24/20 23 07/24/2023 CBC/C OMPLE TE BLD COUNT W/DIF F hemoglobin 15.3 g/dL 13.2-1 7.0 Not Available [facility] (Lab) [address] [place], [address], 07/24/2023 19:15:51 07/24/20 23 07/24/2023 CBC/C OMPLE TE BLD COUNT W/DIF F hematocrit 46.7 % 39.3-5 0.0 Not Available [facility] (Lab) [address] [place], [address], 07/24/2023 19:15:51 07/24/20 23 07/24/2023 CBC/C OMPLE TE BLD COUNT W/DIF F mean red cell volume 101.1 fL 80.0-9 7.0 high Not Available [facility] (Lab) [address] [place], [address], 07/24/2023 19:15:51 07/24/20 23 07/24/2023 CBC/C OMPLE TE BLD COUNT W/DIF F mean red cell hemoglobin 33.1 pg 27.0-3 3.0 high Not Available [facility] (Lab) [address] [place], [address], 07/24/2023 19:15:51 07/24/20 23 07/24/2023 CBC/C OMPLE TE BLD COUNT W/DIF F mean RBC HGB concentratio n 32.8 g/dL 31.0-3 6.0 Not Available [facility] (Lab) [address] [place], [address], 07/24/2023 19:15:51 07/24/20 23 07/24/2023 CBC/C OMPLE TE BLD COUNT W/DIF F red cell distribution width 12.1 % 11.8-1 5.5 Not Available [facility] (Lab) [address] [place], [address], 07/24/2023 19:15:51 07/24/20 23 07/24/2023 CBC/C OMPLE TE BLD COUNT W/DIF F platelets 256 x10'3 /uL 150-40 0 Not Available [facility] (Lab) [address] [place], [address], 07/24/2023 19:15:51 07/24/20 23 07/24/2023 CBC/C OMPLE TE BLD COUNT W/DIF F mean platelet volume 10.5 fL 9.0-12 .4 Not Available [facility] (Lab) [address] [place], [address], 07/24/2023 19:15:51 07/24/20 23 07/24/2023 CBC/C OMPLE TE BLD COUNT W/DIF F neutrophils 62.4 % 39.0-7 2.0 Not Available [facility] (Lab) [address] [place], [address], 07/24/2023 19:15:51 07/24/20 23 07/24/2023 CBC/C OMPLE TE BLD COUNT W/DIF F lymphocytes 28.6 % 16.0-4 7.0 Not Available [facility] (Lab) [address] [place], [address], 07/24/2023 19:15:51 07/24/2007/24/2023 CBC/C OMPLE TE BLD COUNT W/DIF F monocytes 7.2 % 5.0-12 .0 Not Available [facility] (Lab) [address] [place], [address], 07/24/2023 19:15:51 07/24/2007/24/2023 CBC/C OMPLE TE BLD COUNT W/DIF F eosinophils 1.2 % 1.0-7. 0 Not Available [facility] (Lab) [address] [place], [address], 07/24/2023 19:15:51 07/24/2007/24/2023 CBC/C OMPLE TE BLD COUNT W/DIF F basophils 0.3 % 0.0-2. 0 Not Available [facility] (Lab) [address] [place], [address], 07/24/2023 19:15:51 07/24/20 23 07/24/2023 CBC/C OMPLE TE BLD COUNT W/DIF F immature granulocytes 0.3 % 0.00-0 .50 Not Available [facility] (Lab) [address] [place], [address], 07/24/2023 19:15:51 07/24/20 23 07/24/2023 CBC/C OMPLE TE BLD COUNT W/DIF F neutrophils, absolute count 3.61 x10'3 /uL 1.5-8. 0 Not Available [facility] (Lab) [address] [place], [address], 07/24/2023 19:15:51 07/24/20 23 07/24/2023 CBC/C OMPLE TE BLD COUNT W/DIF F lymphocytes, absolute count 1.66 x10'3 /uL 1.07-3 .43 Not Available [facility] (Lab) [address] [place], [address], 07/24/2023 19:15:51 07/24/20 23 07/24/2023 CBC/C OMPLE TE BLD COUNT W/DIF F monocytes, absolute count 0.42 x10'3 /uL 0.29-0 .99 Not Available [facility] (Lab) [address] [place], [address], 07/24/2023 19:15:51 07/24/20 23 07/24/2023 CBC/C OMPLE TE BLD COUNT W/DIF F eosinophils, absolute count 0.07 x10'3 /uL 0.02-0 .53 Not Available [facility] (Lab) [address] [place], [address], 07/24/2023 19:15:51 07/24/20 23 07/24/2023 CBC/C OMPLE TE BLD COUNT W/DIF F basophils, absolute count 0.02 x10'3 /uL 0.01-0 .08 Not Available [facility] (Lab) [address] [place], [address], 07/24/2023 19:15:51 07/24/2007/24/2023 CBC/C OMPLE TE BLD COUNT W/DIF F immature granulocytes ,absolute 0.02 x10'3 /uL 0.00-0 .05 Not Available [facility] (Lab) [address] [place], [address], 07/24/2023 19:15:51 07/24/20 23 07/24/2023 CBC/C OMPLE TE BLD COUNT W/DIF F nucleated red blood cells 0.0 % -0 Not Available [facility] (Lab) [address] [place], [address], 07/24/2023 19:15:51 07/24/20 23 07/24/2023 CBC/C OMPLE TE BLD COUNT W/DIF F NRBC# 0.00 x10'3 /uL Not Available [facility] (Lab) [address] [place], [address], 07/24/2023 19:15:51 02/28/20 23 US, duple x, venou s, lower extre mity No observ ation record ed. [email or web address] Not Available 2022 10:38:30 Result Notes None recorded. Problems Name Problem SNOMED Code Status Onset Date Resolution Date Notes Provider Name and Address Organization Details Recorded Time Rectal hemorrhage 07275416 Completed Not Available [facility] 3 01:08:23 Venous varices 653124201 Completed Not Available [facility] 3 01:08:23 Venous varices 826264488 Active Not Available [facility] 3 13:42:16 Scapulalgi a 49651723 Completed Not Available [facility] 3 01:08:24 Abdominal pain 59003248 Completed Not Available [facility] 3 01:08:24 Low back pain 598847870 Active Not Available [facility] 3 13:42:17 Anxiety 83630604 Active Not Available [facility] 3 13:42:17 Ulcerative colitis 31900467 Active Not Available [facility] 3 13:42:17 Otitis media 93909396 Completed Not Available [facility] 3 01:08:25 Venous stasis 11936224 Active Not Available [facility] 3 13:42:17 Smoker 83130495 Active Not Available [facility] 3 13:42:17 Liver function tests outside reference range 871850704 Completed 201803/12/2022 Not Available Count includes the [facility] 3 01:08:24 Kidney stone 91897410 Active 2019 Not Available [facility] 3 13:42:17 Serum creatinine above reference range 371755079 Active 2019 Not Available [facility] 3 13:42:16 Liver function tests outside reference range 916043604 Active 2021 Not Available [facility] 3 13:42:16 Depressive disorder 75194253 Active 2021 Not Available [facility] 3 13:42:17 Leukocytos is 363855601 Active 2022 Not Available [facility] includes the [facility] 3 13:42:16 Fatigue 71210342 Active 2022 Not Available [facility] 3 13:42:17 Cachexia 693120935 Active 2022 Not Available [facility] 3 13:42:16 Varicose veins of lower extremity 30904127 Active 2022 Not Available [facility] 3 13:42:17 Pain due to varicose veins of lower extremity 067331842 Active 2022 Not Available [facility] 3 13:42:17 Erectile dysfunctio n 767639794 Active 2022 Eitan Ramirez MD [address], [facility] [address], [place], [address] , [employer] 3 10:09:46 Varicose veins of lower extremity 71812214 Active 2022 Eitan Ramirez MD [address], [place], [address] , [employer] 3 10:13:35 Nausea 211340107 Active 2023 ANEDR Lundberg, [employer] 4 17:11:50 Problem Notes None recorded. Procedures Surgical History Date Name Laterality Status Provider Name and Address Organization Details Recorded Time 11/30/19 20 cystoscopy completed Not Available [facility] includes the [facility] 3 00:55:45 11/11/19 20 cystoscopy completed Not Available [facility] includes the [facility] 3 00:55:45 pneumothorax relief completed Not Available [facility] the [facility] 11/13/2022 00:55:45 Hernia Repair completed Not Available [facility] 11/13/2022 00:55:45 Imaging Results None recorded. Procedure Notes None recorded. Medical Equipment None [...] TWICE A DAY DIRECTED FOR 30 DAYS 01/04 completed Not Available Not Available Not Available Proctosol HC 2.5 % rectal cream with [...] TAKE 1 CAPSULE BY MOUTH EVERY DAY 2024 active FELIPE 01/04/25 ok to rf Not Available Not Available Not Available clindamyc in HCl 300 mg capsule [...] topical cream with perineal applicato r APPLY TO RECTUM ONE TO TWO TIMES DAILY FOR NO MORE THEN TWO WEEKS AT A TIME. active Not Available Not Available No t Available alprazola m 0.5 mg tablet BRING BOTH TABLETS TO [address] DAY OF PROCED E. active Not Available Not Available No t Available lorazepam 0.5 mg tablet TAKE 1 TABLET TWICE A DAY BY ORAL ROUTE NEEDED. 01/04 completed Not Available Not Available Not Available oxycodone -acetamin ophen 10 mg-325 mg [...] 1 TABLET BY MOUTH TWICE A DAY 01/04 completed Not Available Not Available Not Available omeprazol e 20 mg capsule,d elayed release Take 1 capsule every day by oral route. active Not Available Not Available No t Available mirtazapi ne 15 mg tablet TAKE 1 TABLET BY MOUTH EVERYDAY AT BEDTIME 01/04 completed Not Available Not Available Not Available ibuprofen 600 mg tablet 10/18 completed [...] 8 HOURS NEEDED FOR NAUSEA AND VOMITING 01/04 completed Not Available Not Available Not Available cyclobenz aprine 5 mg tablet active Not Available Not Available No t Available mesalamin e 1,000 mg rectal supposito ry INSERT 1 SUPPOSIT ORY EVERY DAY AT BEDTIME X1 MONTH active Not Available Not Available No t Available mesalamin e 1.2 gram tablet,de layed release TAKE 2 TABLETS BY MOUTH EVERY DAY active Not Available [...] in Arterial blood by Pulse oximetry Systolic And Diastolic Provider Name and Address Organization Details Last Updated DateTime 5 185.42 cm 20.7 kg/m2 24541 g 97.2 [degF] 75 /min 96 % 96 % 116/64 mm[Hg] Sole ochoa [facility] [employer] [facility] 5 16:25:48 Date Recorded Body height Body mass index (BMI) Body weight Body temperature Heart rate Respiratory rate Oxygen saturation Oxygen saturation in Arterial blood by Pulse oximetry Systolic And Diastolic Provider Name and Address Organization Details Last Updated DateTime 4 185.42 cm 19.7 kg/m2 63625.2 6 g 97.9 [degF] 76 /min 16 /min 97 % 97 % 116/68 mm[Hg] Sharmin Medrano MA [facility] [employer] [facility] 4 16:10:01 Date Recorded Body height Body weight Body temperature Heart rate Oxygen saturation Oxygen saturation in Arterial blood by Pulse oximetry Systolic And Diastolic Provider Name and Address Organization Details Last Updated DateTime 3 185.42 cm 08472.2 2 g 97.6 [degF] 70 /min 98 % 98 % 110/62 mm[Hg] Mark Santos [facility] [employer] [facility] 3 12:45:07 Date Recorded Body height Body mass index (BMI) Body weight Body temperature Heart rate Oxygen saturation Oxygen saturation in Arterial blood by Pulse oximetry Systolic And Diastolic Provider Name and Address Organization Details Last Updated DateTime 3 185.42 cm 20.6 kg/m2 02511.4 1 g 97.1 [degF] 74 /min 97 % 97 % 118/70 mm[Hg] Sole ochoa Yennifer [facility] [employer] [facility] 3 14:54:53 Date Recorded Body weight Body mass index (BMI) Body height Body temperature Heart rate Oxygen saturation Oxygen saturation in Arterial blood by Pulse oximetry Systolic And Diastolic Provider Name and Address Organization Details Last Updated DateTime 3 35240.7 4 g 21.8 kg/m2 185.42 cm 96.9 [degF] 73 /min 98 % 98 % 128/80 mm[Hg] ANDER Mohr [place] - [facility] 3 09:57:00 Social History Question Answer Notes LastModified by Organizat ion Details LastModified Time Tobacco Smoking Status Former Smoker Not Available [facility] 11/13/2022 00:51:36 Do You Have An Advance Directive? No [id number] Information not available 11/13/2022 What Is Your Level Of Caffeine Consumption? Occasional [id number].[id number] Information not available 11/13/2022 What Is Your Code Status? Full Code [id number] Information not available 11/13/2022 In The 14 Days Before Symptom Onset, Have You Had Close Contact With A Laboratory-confir med COVID-19 While That Case Was Ill? No MIGRATION.[id number] Information not available 11/13/2022 In The 14 Days Before Symptom Onset, Have You Had Close Contact With A Person Who Is Under Investigation For COVID-19 While That Person Was Ill? No [id number].64272 [id number] Information not available 11/13/2022 What Type Of Diet Are You Following? SPECIFIC Low Residue Low Fiber Diet MIGRATION.[id number] Information not available 11/13/2022 Are You Following A Low Salt Diet? No MIGRATION.55850 [id number] Information not available 11/13/2022 Do You Have A Medical Power Of Stoker Erector? No MIGRATION.50831 34029 Information not available 11/13/2022 What Was The Date Of Your Most Recent Tobacco Screening? 08/14/2022 MIGRATION.24801 [id number] Information not available 11/13/2022 What Is Your Relationship Status? MIGRATION.[id number] Information not available 11/13/2022 Do You Use Your Seat Belt Or Car Seat Routinely? Yes MIGRATION.96148 24540 Information not available 11/13/2022 Are You Passively Exposed To Smoke? No MIGRATION.44752 65330 Information not available 11/13/2022 Have You Recently Traveled Abroad? No MIGRATION.58313 53084 Information not available 11/13/2022 Have You Used IV Drugs? No MIGRATION.15692 [id number] Information not available 11/13/2022 Do You Have Any Dietary Restrictions? Yes MIGRATION.01281 30126 Information not available 11/13/2022 Sex: Male Functional Status Question Answer Note LastModified by Organizat ion Details LastModified Time Do you use any illicit or recreational drugs? Yes marijuana MIGRATION.68463 [id number] Information not available 11/13/2022 What is your level of alcohol consumption? 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 Current user of electronic cigarettes MIGRATION.27121 70374 Information not available 11/13/2022 What is your exercise level? None MIGRATION.71746 32750 Information not available 11/13/2022 Mental Status Question Answer Note LastModified by Organizat ion Details LastModified Time Do you feel stressed (tense, restless, nervous, or anxious, or unable to sleep at night)? [id number] Information not available 11/13/2022 Family History Nothing Reported. Medical History Condition Response KIDNEY STONES Y OTHER # 1 Y Other # 2 Y BACK / NECK PROBLEMS Y DEPRESSION (INCLUDING POST ) Y Immunizations Vaccine Type Date Status Note Provider Nam e and Address Organization Details Recorded Time Influenza, split virus, quadrivalent, PF 07/24/2023 completed ANDER Powers, [place] - [facility] [place] [employer] [facility] 07/24/2023 17:01:56 COVID-19, mRNA, LNP-S, PF, 30 mcg/0.3 mL dose 03/12/2021 completed Not Available [facility] includes the [facility] 3 13:42:17 COVID-19, mRNA, LNP-S, PF, 30 mcg/0.3 mL dose 02/19/2021 completed Not Available Count includes the [facility] 3 13:42:17 Influenza, split virus, quadrivalent, PF 07/30/2022 completed Not Available Count includes the [facility] 3 13:42:17 Tdap 03/13/2022 completed Not Available Count includes the [facility] 03/21/2023 13:42:17 Past Encounters Encounter ID Performer Location Encounter Start Date Encounter Closed Date Diagnosis/Indication Diagnosis SNOMED-CT Code Diagnosis ICD10 Code Diagnosis IMO Codes Diagnosis Note [id number] Eitan Ramirez MD [facility] Internal Med [address] [facility] [place] [address] 11/13/2020 00:00:00 11/13/2020 16:09:35 [id number] _ATHN_MIGR ATION_1 _ATHENA_M IGRATION_ DEFAULT_1 _1 , 06/27/2021 00:00:00 06/27/2021 17:33:53 [id number] Eitan Ramirez MD [facility] Internal Med [address] [address] 08/21/2021 00:00:00 08/21/2021 17:10:42 [id number] Eitan Ramirez MD [facility] Internal Med [address] [address] 03/13/2022 00:00:00 03/13/2022 13:27:32 [id number] Eitan Ramirez MD [facility] Internal Med [address] [address] 07/30/2022 00:00:00 07/30/2022 15:49:08 [id number] _ATHN_MIGR ATION_1 _ATHENA_M IGRATION_ DEFAULT_1 _1 , 08/14/2022 00:00:00 08/14/2022 14:34:49 [id number] Eitan Ramirez MD [facility] Internal Med [address] [place] [address] 11/25/2022 14:36:59 11/25/2022 15:39:28 Ulcerative colitis 57285929 K51.90 no meds, under control Anxiety 19059932 F41.9 better Depressive disorder 3548 9007 F32.A better Liver func tion tests outside reference range 416062941 R94.5 improved Adult heal th examination 943938271 Z00.00 COVID- 02/19/2021 , 03/12/2021 FLU- 2col onoscopy 09/04 Dr Kerns Leukocytosis 699384379 D 72.829 could be due to ulcerative colitis, will recheck in 4 months [id number] Michelle Kerns MD [facility] General Surgery [address] [address] 01/22/2023 13:46:36 01/26/2023 23:30:28 Ulcerative colitis 53247731 K51.90 PT REQUESTS A DIETIAN CONSULT Cachexia 048668761 R64 [id number] Eitan Ramirez MD [facility] Internal Med [address] [place] [address] 02/19/2023 14:22:25 02/19/2023 14:52:24 Anxiety 29336460 F41.9 lower the dose Ulcerative colitis 50428 004 K51.90 better with meds Depressive disorder 3548 9007 F32.A better Liver func tion tests outside reference range 923741535 R94.5 improved Leukocytosis 823503632 D 72.829 could be due to ulcerative colitis, will recheck Adult [facility] examination 968655728 Z00.00 COVID- 02/19/2021 , 03/12/2021 FLU- 2col onoscopy 09/04 Dr Kerns [id number] Nixon ansari MD [facility] General Surgery [address] [facility] [address] [address] 02/25/2023 12:31:10 02/28/2023 09:05:12 Varicose veins of lower extremity 15527571 I83.899 Pain due t o varicose veins of lower extremity 723052843 I83.813 Bilat legs [id number] Eitan Ramirez MD [facility] Internal Med [address] [place] [address] 06/12/2023 14:44:56 06/12/2023 15:32:49 Anxiety 29212157 F41.9 start Buspar Ulcerative colitis 76387 004 K51.90 better with meds Depressive disorder 3548 9007 F32.A ^ the dose Liver func tion tests outside reference range 784882128 R94.5 improved Leukocytosis 386569275 D 72.829 could be due to ulcerative colitis, will recheck Adult heal th examination 159595759 Z00.00 COVID- 02/19/2021 , 03/12/2021 FLU- ol onoscopy 09/04 Dr Kerns [id number] Eitan Ramirez MD [facility] Internal [facility] [address] [facility] [place] [address] 07/24/2023 09:47:43 07/24/2023 10:29:18 Anxiety 23758583 F41.9 better Ulcerative colitis 27256 004 K51.90 better with meds Depressive disorder 3548 9007 F32.A better Liver func tion tests outside reference range 507514892 R94.5 improved Leukocytosis 295650646 D 72.829 could be due to ulcerative colitis, will recheck Adult [facility] th examination 529890900 Z00.00 COVID- 02/19/2021 , 03/12/2021 FLU- 07/24/23Co lonoscopy 09/04 Dr Kerns Administra tion of influenza vaccine 03068458 Z23 Erectile dysfunction 860 804043 F52.21 no meds Varicose v eins of lower extremity 71537281 I83.90 [id number] Eitan Ramirez MD [facility] Internal [facility] [address] [facility] [place] [address] 02/10/2024 15:54:44 02/10/2024 17:03:50 Anxiety 87167832 F41.9 add Mirtazapin e Ulcerative colitis 89136 004 K51.90 on meds, need f/u with GI Depressive disorder 3540 9007 F32.A NOT UNDER control Liver func tion tests outside reference range 816038289 R94.5 improved Leukocytosis 454652087 D 72.829 improved Adult heal th examination 772026443 Z00.00 COVID- 02/19/2021 , 03/12/2021 FLU- 07/24/23Co lonoscopy 09/04 Dr Kerns Erectile dysfunction 860 785844 F52.21 better Varicose v eins of lower extremity 91974078 I83.90 Nausea 389074438 R11.0 meds help [id number] Eitan Ramirez MD [facility] Internal [facility] [address] [facility] [place] [address] 01/04/2025 16:18:01 01/04/2025 17:41:49 Anxiety 55783418 F41.9 under control Ulcerative colitis 00488 004 K51.90 under control Depressive disorder 3548 9007 F32.A under control Liver func tion tests outside reference range 268132008 R94.5 improved Leukocytosis 414375004 D 72.829 improved Adult heal th examination 533870529 Z00.00 COVID- 02/19/2021 , 03/12/2021 FLU- 07/24/23Co lonoscopy 09/04 Dr Kerns Erectile dysfunction 860 195790 F52.21 better Varicose v eins of lower extremity 40316439 I83.90 better Nausea 309098946 R11.0 meds help Hyperlipid emia screening 103556850 Z13.220 Health Concerns Section Related Observation LastModified by Organization Detai ls LastModified Time None Recorded Concern Status LastModified by Organization Details LastModified Time None Recorded Advance Directives Directive N: Payers Insurance Date Sequence Insurance Name Policy Number Policy Chu Covered Member ID Chu Member ID Guarantor Name 01/01/2025 1 [employer] (PPO) [id number] Romi Duarte [id number] [employer] [place] Notes Date Note Type Note Provider Name and Address Organization Details Recorded Time 02/25/2023 text/html Patient presents to clinic to discuss varicose veins of BLEs. States he had an ablation procedure 3-5 years ago of R leg only, and shortly after noticed return of varicocities. States he now has daily aching, soreness, interferes with ability to work. Has tried compression stockings without relief over the past year. Nixon Reyes MD [address] [place] [address], [facility] [address], [place], [place], [id number], [facility] [employer] 02/26/2023 11:47:36 06/12/2023 text/html Here today for routine f/u, compliant to meds, no side effectsDepression/A nxiety - MEDS NOT HELPING, has not been [...] cr was 1.5ED- Eitan Ramirez MD [address], [facility] [address], [place], [address], [facility] [employer] [facility] 06/12/2023 15:24:35 07/24/2023 text/html Here today for routine f/u, compliant to meds, no side effectsand a med follow up on anxietyDepression/A nxiety -under control with medsHe has significant sexual [...] not covered ) Eitan Ramirez MD [address] [facility], [facility] [address], [place], [address], [facility] [employer] [facility] 07/24/2023 10:15:27 02/10/2024 text/html Here today for routine f/u, compliant to meds, no side effectsand a med follow up on anxiety because its not workingDepression/A nxiety -under control with medsHe has significant sexual [...] but is scheduled Eitan Ramirez MD [address], [facility] [address], [place], [address], [facility] [employer] [facility] [employer] 02/10/2024 17:00:06 01/04/2025 text/html Here today for routine f/u, compliant to meds, no side effects PT IS FASTING ( [employer] ) Depression/Anxiety -under control with medsHe has significant sexual side effect with higher dose of venlafaxineHe has tried Bupropion and celexa in the pastHe lost job due to missing work ( ulcerative colitis related )Meds- Venlafaxine ER 75 mg qdUlcerative Colitis- some flare ups off and on , [facility] gained 8 lbsMeds- Mesalamine 4 grams qd And Ondansetron for nauseaH/O Kidney stone, s/p removal 12/02, cr was 1.5, improved ED- improved Varicose veins on both legs, gets pain, seen Dr Carin newton ( insurance not covered ) s/p surgery Eitan Ramirez MD [address], [address], [place], [address], [employer] 01/04/2025 16:45:26
[2025-06-14 12:02] LABS: Hematocrit 44.6 % (42.0-52.0); Hemoglobin 14.6 g/dL (14.0-18.0); Mean Corpuscular HGB Conc 32.7 g/dl (32-36); Mean Corpuscular Hemoglobin 31.9 pg (26-34); Mean Corpuscular Volume 97.6 fl (80-100); Platelet Count Result 243 k/mm3 (150-375); Red Blood Count 4.57 M/mm3 (4.6-6.20); White Blood Count 5.1 K/mm3 (4.5-10.0)
[2025-06-14 12:32] LABS: Alanine Aminotransferase 27 U/L (6-50); Albumin Level 4.4 g/dL (3.5-5.1); Alkaline Phosphatase 65 U/L (38-126); Anion Gap 6 mmol/L (4-12); Aspartate Amino Transferase 34 U/L (17-59); Bilirubin,Total 0.5 mg/dL (0.2-1.3); Blood Urea Nitrogen 16 mg/dL (9-20); CRP < 0.5 mg/dL (<1.0); Calcium 8.9 mg/dL (8.4-10.2); Carbon Dioxide 29 mmol/L (22-30); Chloride 103 mmol/L (98-107); Estimated Glomerular Filt Rate > 60; Glucose 103 mg/dL (65-110); Potassium 4.4 mmol/L (3.4-5.0); Sodium 138 mmol/L (137-145); Total Protein 7.8 g/dL (6.3-8.2)
[2025-06-14 13:01] LABS: Hepatitis B Surface Antigen Negative (Negative)
[2025-06-14 13:06] LABS: Hepatitis B Core IgM Result Negative (Negative)
[2025-06-14 13:19] LABS: Hepatitis B Surface Anti Res Negative
== END 2025-06-14 11:44 | disposition home or self-care (01) ==
LOC: ANHLAB 11:45
PROVIDERS: PCP Internal Medicine; Visit Provider Internal Medicine Gastroenterology
DX: K51.20 Ulcerative (chronic) proctitis without complications (principal)
CPT/HCPCS: 36415; 80053; 85027; 85652; 86140; 86480; 86705; 86706; 87340

== ENCOUNTER 2025-06-15 11:45 | Outpatient (CLI) | payer OTHER, SELFPAY ==
--- OUTSIDE RECORDS SUMMARY | 2025-06-15 12:15 | XMS_ITS | Clinical Summary ---
Author Organization [facility] [address] [place] [id number] Care Team Providers Care Negative Restorer Name Role Phone Eitan Ramirez MD Primary Care Provider Allergies No known active allergies Medications venlafaxine XR (EFFEXOR-XR) 75 mg 24 hr capsule Take 1 capsule (75 mg total) by mouth daily 8 Active multivit-zinc miner blasting als/FA/lycopen e (MEN'S DAILY ORAL) [...] procedure. Assessment & Plan (09/02/2024 9:46 AM TRADE MANAGER): Bilateral lower extremity CEAP C3 disease with [...] proceed. 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 Bilateral lower extremity reflux wheel and caster repairer ordered for further evaluation. Intractable vomiting 11/10/2019 Assessment & Plan (11/10/2019 7:40 PM TRADE MANAGER): Worsening. Etiology is unclear. It is however [...] n/a. Assessment & Plan (11/10/2019 7:40 PM TRADE MANAGER): Uncontrolled. The patient was on mesalamine suppository. [...] 11/10/2019 Assessment & Plan (11/10/2019 7:43 PM TRADE MANAGER): The patient was advised to follow-up with the general surgeon who reportedly has planned to perform herniorrhaphy on him. Encounter for screening colonoscopy 10/12/2019 Overview (10/12/2019): Added automatically from request for surgery [id number] Screen for colon cancer 12/08/2018 Overview (12/08/2018): Added automatically from request for surgery [id number] Intractable vomiting with nausea 09/21/2018 Assessment & Plan (10/08/2019 1:20 AM TRADE MANAGER): An upper endoscopy is recommended to clarify the diagnosis and guide therapy. The risks, benefits, and alternatives were discussed with the patient; he agrees to proceed. Rectal bleeding 09/21/2018 Assessment & Plan (11/10/2019 7:42 PM TRADE MANAGER): Worsening again to the patient. 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 Patient reportedly had CBC done at [facility] earlier today. I will request for the CBC, CMP and CT abdomen records. Assessment & Plan (10/08/2019 1:20 AM TRADE MANAGER): A colonoscopy is recommended to clarify the [...] on file Legal Sex Male 3:14 AM TRADE MANAGER Gender Identity Not on file Sexual Orientation Not on file Obstetrics History Last Filed Vital Signs Vital Sign Reading Time Taken Comments Blood Pressure 102/68 03/09/2025 8:45 AM CDT Pulse 80 03/09/2025 8:45 AM CDT Temperature 36.7 C (98 F) 10/28/2019 8:16 AM TRADE MANAGER Respiratory Rate 14 11/15/2019 2:44 PM TRADE MANAGER Oxygen Saturation 96% 03/09/2025 8:45 AM CDT [...] Associated Diagnosis Comments COLONOSCOPY 10/28/2019 9:54 AM TRADE MANAGER from Last 3 Months or Most Recently Relevant to Health Maintenance Results * COLONOSCOPY (10/28/2019 9:54 AM TRADE MANAGER) Anatomical Region Laterality Modality Other Narrative Procedure Note Leonarda Pulido MD - 10/28/2019 9:54 AM CST [facility] Patient Name: Mejia Duarte Procedure Date: 10/28/2019 9:54 AM Date of : 1975 Admit Type: Outpatient Age: 44 Gender: Male Note Status: Finalized Attending MD: Leonarda Pulido M.D. Procedure Date: 10/28/2019 Procedure: Colonoscopy Indications: Personal history of ulcerative colitis Providers: Leonarda Pulido M.D., Karlee Roberto DATA ENGINEER (Anesthesia Staff), Crow Edouard RN Referring MD: [...] by the physician, the nurse and the prison guard in the procedure room. Mental Status Examination: [...] disease activity. Procedure Code(s): --- Professional --- 68108, Colonoscopy, flexible; with biopsy, single or multiple Diagnosis Code(s): --- Professional --- K51.20, Ulcerative (chronic) proctitis without complications Z87.19, Personal history of other diseases of the digestive system CPT copyright 2017 [employer]. All rights reserved. The codes documented in this report are preliminary and upon viscera washer reviewmay be revised to meet current compliance requirements. Electronically signed by Leonarda Pulido M.D. Leonarda Pulido M.D. 10/28/2019 10:39:56 AM Number of Addenda: 0 Note Initiated On: 10/28/2019 9:54 AM Leonarda Pulido MD ENDOSCOPY PROCEDURES Fi nal Result from Last 3 Months or Most Recently Relevant to Health Maintenance Insurance [employer] CIG[employer] Care Teams Negative Restorer Relationship Specialty Start Date End Date Eitan Ramirez MD PCP - General Internal Medicine 09/10/18
--- OUTSIDE RECORDS SUMMARY | 2025-06-15 12:15 | XMS_ITS | Patient Health Record ---
Author Organization [facility] [employer] Address [address] [place] [address] Care Team Providers Care Claims Service Adjustor Name Role Phone Albertojeannie Naz Unavailable [phone] James KENNEY, Eitan Unavailable Unavailable Reason For Referral No Information Social History Sex Assigned At : Social History Observation Description Sex Assigned At Male Plan Of Treatment No Information Insurance Providers Payer Name Payer Address Payer Phone Subscriber Number Group Number Insured Name Patient Relationship to Insured Coverage Start Date Coverage End Date [employer] [address] [place], [place] [phone] [id number] YASHIRA ROSAS Self - patient is the insured [facility] Ppo [address] [address] [place] [address] [id number] YASHIRA ROSAS Self - patient is the insured
--- OUTSIDE RECORDS SUMMARY | 2025-06-15 12:15 | XMS_ITS | Clinical Summary ---
Author Organization [facility] [employer] Address [address] [facility] [place] [address] Care Team Providers Care Osteopathic Medicine Teacher Name Role Phone Eitan Ramirez MD Primary Care Provider Source Comments [facility],non-owned Affiliates and Associated Physician Practices is amultiple site organization consisting of ambulatory clinics and hospital sitesin [place], [place], [place] and [place]. This disclosure is being madepursuant to the Care Everywhere program and may not contain all information available regarding this patient. Last updated 18.[facility] [employer] Active Problems Problem Noted Date Diagnosed Date [...] on file Legal Sex Male 5:33 PM CHARTER COORDINATOR Gender Identity Not on file Sexual Orientation Not on file Last Filed Vital Signs Vital Sign Reading Time Taken Comments Blood Pressure 120/70 09/28/2014 10:12 AM CHARTER COORDINATOR Pulse 74 04/28/2014 11:35 AM CDT Temperature [...] ROSAS Subscriber ID:Not on file (Home) Address: [address] [place] [address] Payer ID:Not on file Group ID:Not on file Type:Self Pay Address: [place], [place] [employer] Care Teams Osteopathic Medicine Teacher Relationship Specialty Start Date End Date Eitan Ramirez MD [address] [facility] [address] [place] [id number] PCP - General 08/03/14
--- OUTSIDE RECORDS SUMMARY | 2025-06-15 12:15 | XMS_ITS | Clinical Summary ---
Author Organization [facility] [employer] [place] Address [address] [place] [address] Care Team Providers Care Pre Fabricator Name Role Phone Eitan Ramirez MD Primary Care Provider [phone] Medications No known medications Active Problems No [...] 06/16/2019, 06/18/2018, Additional history exists Care Teams Pre Fabricator Relationship Specialty Start Date End Date Eitan Ramirez MD [address] [address] PCP - General Internal Medicine 06/04/18
[2025-06-17 12:08] LABS: Calprotectin, Fecal 79 ug/g (0-120)
== END 2025-06-15 11:46 | disposition home or self-care (01) ==
LOC: ANHLAB 11:46
PROVIDERS: PCP Internal Medicine; Visit Provider Internal Medicine Gastroenterology
DX: K51.20 Ulcerative (chronic) proctitis without complications (principal)
CPT/HCPCS: 83993